=== PATIENT | male | born 1950 | race Caucasian/White ===

== ENCOUNTER 2021-06-06 11:58 | Inpatient (IN) | payer MEDICARE, OTHER ==
[~2021-06-06] VITALS: Ht 185.4 cm; Wt 91.4 kg
[~2021-06-06 11:58] MED LIST: LISI5TAB15 PO; METH40TA3 PO; METO10TA81 PO; ONDA4TAB10 SL; SIMV40TA18 PO
[2021-06-06] MEDS ORDERED: CONTRAST GIVEN. MC PRN (12:30)
[2021-06-06] MEDS ORDERED: IOHEXOL 300 MG/ML 100ML VIAL. IV ONE (12:30)
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
[2021-06-06 12:37] LABS: BASO % 0 % (0-3); EOS # 0.1 x10^3/uL (0.0-0.7); EOS % 1 % (0-3); HEMATOCRIT 38.3 % (39.0-53.0); HEMOGLOBIN 12.9 g/dL (13.0-17.5); LYMPH # 0.7 x10^3/uL (1.0-4.8); LYMPH % 8 % (24-48); MEAN CORPUSCULAR HEMOGLOBIN 30 pg (25-35); MEAN CORPUSCULAR HGB CONC 34 g/dL (31-37); MEAN CORPUSCULAR VOLUME 89 fL (79-100); MONO # 0.5 x10^3/uL (0.0-1.1); MONO % 6 % (0-9); NEUT # 6.9 x10^3/uL (1.8-7.7); NEUT % 85 % (31-73); PLATELET COUNT 179 x10^3/uL (140-400); RED BLOOD COUNT 4.32 x10^6/uL (4.30-5.70); RED CELL DISTRIBUTION WIDTH 14.8 % (11.5-14.5); WHITE BLOOD COUNT 8.2 x10^3/uL (4.0-11.0)
[2021-06-06 12:57] LABS: CALCIUM 8.8 mg/dL (8.5-10.1); CREATININE 0.9 mg/dL (0.7-1.3); GFR 82.9; POTASSIUM 3.9 mmol/L (3.5-5.1)
--- NOTE | 2021-06-06 13:00 | RAD ---
EXAM: CTA HEAD AND NECK W/WO CONTRAST DATE: 06/06/2021 12:19 PM INDICATION: right weakness TECHNIQUE: CTA angiogram of the head and neck was obtained after IV bolus administration of 75 cc of Omnipaque 300. The images were sent to workstation and multiplanar reconstructions were obtained. Mu ltiplanar reconstruction images to include MIP and 3-D reconstruction images are submitted. One or more of the following dose reduction techniques were utilized: Automated exposure control (AEC ), Adjustment of mA and/or kV according to patient size, Use of iterative reconstruction technique dailey ch as ASiR, CT scan done according to ALARA and image gently/image wisely COMPARISON: Noncontrast CT head done earlier the same day. FINDINGS: CTA Head: The visualized distal internal carotid arteries, anterior and middle cerebral arteries are patent and normal caliber. The distal vertebral arteries, basilar artery, and posterior cerebral arteries are p atent and normal caliber. No aneurysm or arteriovenous malformation is seen. CTA Neck: Right carotid: The right common carotid artery is patent and normal caliber. The carotid bifurcation is normal. No stenosis of the right internal carotid artery per NASCET criteria. The right external c arotid artery is patent. Left carotid: The left common carotid artery is patent and normal caliber. The carotid bifurcation is normal. No stenosis of the left internal carotid artery per NASCET criteria. The left external carot id artery is patent. Right vertebral: The right vertebral artery is patent and normal caliber. Left vertebral: The left vertebral artery is patent and is dominant. The visualized portions of the aortic arch are normal. The origins of the brachiocephalic and subclav viktoria arteries are normal. No cervical lymphadenopathy. The thyroid gland is normal. The parotid and submandibular glands are no rmal. The visualized aerodigestive tract is unremarkable. Severe multilevel degenerative disc height loss. Multilevel disc protrusions and marginal osteophytes results in multilevel moderate to severe spinal canal stenosis. Multilevel uncovertebral and facet a rthrosis with multilevel moderate to severe neural foraminal narrowing. The visualized portions of the lungs are clear. IMPRESSION: 1. No intracranial large vessel occlusion. 2. No stenosis of the cervical carotid or vertebral arteries. 3. Advanced cervical spondylosis with moderate to severe spinal canal stenosis and neural foraminal n arrowing. This could be further characterized with MRI, as clinically warranted. PQRS Compliance Statement - Stenosis calculations for CT, MR and conventional angiography are based u daniel measurement of the distal ICA diameter in accordance with the NASCET methodology. Electronically signed by: Jeremy Peterson MD (06/06/2021 12:57 PM) [id number]
[2021-06-06 13:03] LABS: ALBUMIN 3.8 g/dL (3.4-5.0); ALBUMIN/GLOBULIN RATIO 1.2 (1.0-1.7); TOTAL BILIRUBIN 0.6 mg/dL (0.2-1.0); TOTAL PROTEIN 6.9 g/dL (6.4-8.2)
[2021-06-06] MEDS ORDERED: ASPIRIN RECTAL 300 MG SUPP. PR PRN (14:15)
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
[2021-06-06] MEDS ORDERED: ACETAMINOPHEN 325 MG TABLET. PO PRN (15:00)
[2021-06-06 15:13] LABS: CHOLESTEROL/HDL RATIO 2.1
[2021-06-06 18:14] VITALS: BP 153/75
[2021-06-06] MEDS ORDERED: TRIA15OI TP (19:09)
[2021-06-06] MEDS ORDERED: [UNRECOGNIZED DRUG - CODE] PO (19:09)
[2021-06-06] MEDS ORDERED: LISI20TA18 PO (19:11)
[2021-06-06] MEDS ORDERED: METHYLNALTREXONE 12 MG/0.6 ML VIAL. SQ ONE (19:15)
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
--- NOTE | 2021-06-06 20:23 | EKG ---
[facility] [address] [place] [address] Test Date: 2021-06-06 Test Time: 12:08:49 Pat Name: DURAN GARCIA Department: Room: [facility] Gender: M Ob/Gyn: : 1950 Requested By: JAMIE GRAY Order Number: [id number] Reading MD: Jules Baxter Measurements Intervals [place] Rate: 64 P: 57 MI: 168 QRS: 24 QRSD: 102 T: 37 QT: 424 QTc: 442 Interpretive Statements SINUS RHYTHM QRS(T) CONTOUR ABNORMALITY CONSIDER ANTEROLATERAL MYOCARDIAL DAMAGE POSSIBLY ABNORMAL ECG RI6.01 Compared to ECG 04/16/2016 16:14:32 Prolonged QT interval no longer present Electronically Signed On 06-07-2021 9:02:08 [employer] by Jules Baxter
[2021-06-06] MEDS ORDERED: ATORVASTATIN CALCIUM 40 MG TABLET. PO SCH (21:00)
[2021-06-06] MEDS: NYSTATIN TOPICAL POWDER 15GM BOTTLE. TP SCH (22:12)
[2021-06-06] MEDS ORDERED: SENN-121 PO (22:32)
[2021-06-06 23:10] VITALS: BP 149/89
[2021-06-06] MEDS: ONDANSETRON PF 4 MG/2 ML VIAL. IVP PRN (23:29)
[2021-06-06] MEDS: MORPHINE SULFATE 2 MG/ML INJ. IVP PRN (23:29)
[2021-06-07 03:40] VITALS: BP 137/80
[2021-06-07] MEDS: ONDANSETRON PF 4 MG/2 ML VIAL. IVP PRN (06:16)
[2021-06-07] MEDS: MORPHINE SULFATE 2 MG/ML INJ. IVP PRN (06:17)
[2021-06-07 06:52] LABS: BASO % 0 % (0-3); EOS # 0.1 x10^3/uL (0.0-0.7); EOS % 1 % (0-3); HEMATOCRIT 37.2 % (39.0-53.0); HEMOGLOBIN 12.5 g/dL (13.0-17.5); LYMPH # 0.8 x10^3/uL (1.0-4.8); LYMPH % 11 % (24-48); MEAN CORPUSCULAR HEMOGLOBIN 30 pg (25-35); MEAN CORPUSCULAR HGB CONC 34 g/dL (31-37); MEAN CORPUSCULAR VOLUME 89 fL (79-100); MONO # 0.4 x10^3/uL (0.0-1.1); MONO % 6 % (0-9); NEUT % 82 % (31-73); PLATELET COUNT 180 x10^3/uL (140-400); RED BLOOD COUNT 4.21 x10^6/uL (4.30-5.70); WHITE BLOOD COUNT 7.2 x10^3/uL (4.0-11.0)
[2021-06-07 06:58] LABS: CALCIUM 8.6 mg/dL (8.5-10.1); CREATININE 0.7 mg/dL (0.7-1.3); GFR 110.9; POTASSIUM 3.9 mmol/L (3.5-5.1)
[2021-06-07 07:00] VITALS: BP 134/70
[2021-06-07] MEDS: NYSTATIN TOPICAL POWDER 15GM BOTTLE. TP SCH ×2 (09:00→20:04)
--- NOTE | 2021-06-07 09:07 | PDOC ---
PROGRESS NOTES Date of Service DATE: 06/07/21 TIME: 09:04 Assessment New stroke, right hemiparesis, previous stroke with right hemiparesis. CT shows chronic small vessel ischemic disease and chronic infarcts left cerebral hemisphere posteriorly and right cerebellum Has had development of gait disorder in the past [address] angiogram incidentally shows cervical spondylosis, rule out cervical cord problems. Hypertension Favorable lipid profile Plan Await MRI of the brain and cervical spine, and echocardiogram Aspirin Switch to lower dose of atorvastatin Watch blood pressure Rehabilitation modalities Subjective Feels better Objective Vital Signs Date Time Temp Pulse Resp B/P (MAP) Pulse Ox O2 Delivery O2 Flow Rate FiO2 06/07/21 07:00 98.0 56 18 134/70 (91) 93 Room Air 98.0 Intake and Output 06/07/21 07:00 Intake Total 0 ml Output Total 0 ml Balance 0 ml Intake Oral 0 ml Output Urine Total 0 ml # Voids 1 # Bowel Movements 1 PHYSICAL EXAM Alert. Oriented to time, place and person. PERRL. EOMI. CN: Slight right central facial weakness, otherwise no focal findings. Muscle tone: normal. Muscle strength: 3/5 right hemiparesis DTR: 2+ Plantar reflex: Flexor Gait: not examined in bed. Sensory exam: Right hemihypesthesia No cerebellar signs elicited. Review of Relevant I have reviewed the following items eryn (where applicable) has been applied. Labs Laboratory Tests Test 06/06/21 12:07 06/06/21 12:20 06/06/21 15:55 06/07/21 04:50 Glucose (Fingerstick) 95 mg/dL (70-99) White Blood Count 8.2 x10^3/uL (4.0-11.0) 7.2 x10^3/uL (4.0-11.0) Red Blood Count 4.32 x10^6/uL (4.30-5.70) 4.21 x10^6/uL (4.30-5.70) Hemoglobin 12.9 g/dL (13.0-17.5) 12.5 g/dL (13.0-17.5) Hematocrit 38.3 % (39.0-53.0) 37.2 % (39.0-53.0) Mean Corpuscular Volume 89 fL (79-100) 89 fL (79-100) Mean Corpuscular Hemoglobin 30 pg (25-35) 30 pg (25-35) Mean Corpuscular Hemoglobin Concent 34 g/dL (31-37) 34 g/dL (31-37) Red Cell Distribution Width 14.8 % (11.5-14.5) 15.0 % (11.5-14.5) Platelet Count 179 x10^3/uL (140-400) 180 x10^3/uL (140-400) Neutrophils (%) (Auto) 85 % (31-73) 82 % (31-73) Lymphocytes (%) (Auto) 8 % (24-48) 11 % (24-48) Monocytes (%) (Auto) 6 % (0-9) 6 % (0-9) Eosinophils (%) (Auto) 1 % (0-3) 1 % (0-3) Basophils (%) (Auto) 0 % (0-3) 0 % (0-3) Neutrophils # (Auto) 6.9 x10^3/uL (1.8-7.7) 6.0 x10^3/uL (1.8-7.7) Lymphocytes # (Auto) 0.7 x10^3/uL (1.0-4.8) 0.8 x10^3/uL (1.0-4.8) Monocytes # (Auto) 0.5 x10^3/uL (0.0-1.1) 0.4 x10^3/uL (0.0-1.1) Eosinophils # (Auto) 0.1 x10^3/uL (0.0-0.7) 0.1 x10^3/uL (0.0-0.7) Basophils # (Auto) 0.0 x10^3/uL (0.0-0.2) 0.0 x10^3/uL (0.0-0.2) Prothrombin Time 15.0 SEC (11.7-14.0) Prothromb Time International Ratio 1.2 (0.8-1.1) Activated Partial Thromboplast Time 32 SEC (24-38) Sodium Level 137 mmol/L (136-145) 138 mmol/L (136-145) Potassium Level 3.9 mmol/L (3.5-5.1) 3.9 mmol/L (3.5-5.1) Chloride Level 100 mmol/L (98-107) 102 mmol/L (98-107) Carbon Dioxide Level 31 mmol/L (21-32) 29 mmol/L (21-32) Anion Gap 6 (6-14) 7 (6-14) Blood Urea Nitrogen 12 mg/dL (8-26) 12 mg/dL (8-26) Creatinine 0.9 mg/dL (0.7-1.3) 0.7 mg/dL (0.7-1.3) Estimated GFR (Cockcroft-Gault) 82.9 110.9 BUN/Creatinine Ratio 13 (6-20) Glucose Level 96 mg/dL (70-99) 87 mg/dL (70-99) Calcium Level 8.8 mg/dL (8.5-10.1) 8.6 mg/dL (8.5-10.1) Total Bilirubin 0.6 mg/dL (0.2-1.0) Aspartate Amino Transf (AST/SGOT) 27 U/L (15-37) Alanine Aminotransferase (ALT/SGPT) 39 U/L (16-63) Alkaline Phosphatase 85 U/L (46-116) Troponin I High Sensitivity 12 ng/L (4-75) Total Protein 6.9 g/dL (6.4-8.2) Albumin 3.8 g/dL (3.4-5.0) Albumin/Globulin Ratio 1.2 (1.0-1.7) Triglycerides Level 51 mg/dL (0-150) Cholesterol Level 157 mg/dL (0-200) LDL Cholesterol, Calculated 72 mg/dL (0-100) VLDL Cholesterol, Calculated 10 mg/dL (0-40) Non-HDL Cholesterol Calculated 82 mg/dL (0-129) HDL Cholesterol 75 mg/dL (40-60) Cholesterol/HDL Ratio 2.1 SARS-CoV-2 Antigen (Rapid) Negative (NEGATIVE) Laboratory Tests Test 06/06/21 12:07 06/06/21 12:20 06/06/21 15:55 06/07/21 04:50 Glucose (Fingerstick) 95 mg/dL (70-99) White Blood Count 8.2 x10^3/uL (4.0-11.0) 7.2 x10^3/uL (4.0-11.0) Red Blood Count 4.32 x10^6/uL (4.30-5.70) 4.21 x10^6/uL (4.30-5.70) Hemoglobin 12.9 g/dL (13.0-17.5) 12.5 g/dL (13.0-17.5) Hematocrit 38.3 % (39.0-53.0) 37.2 % (39.0-53.0) Mean Corpuscular Volume 89 fL (79-100) 89 fL (79-100) Mean Corpuscular Hemoglobin 30 pg (25-35) 30 pg (25-35) Mean Corpuscular Hemoglobin Concent 34 g/dL (31-37) 34 g/dL (31-37) Red Cell Distribution Width 14.8 % (11.5-14.5) 15.0 % (11.5-14.5) Platelet Count 179 x10^3/uL (140-400) 180 x10^3/uL (140-400) Neutrophils (%) (Auto) 85 % (31-73) 82 % (31-73) Lymphocytes (%) (Auto) 8 % (24-48) 11 % (24-48) Monocytes (%) (Auto) 6 % (0-9) 6 % (0-9) Eosinophils (%) (Auto) 1 % (0-3) 1 % (0-3) Basophils (%) (Auto) 0 % (0-3) 0 % (0-3) Neutrophils # (Auto) 6.9 x10^3/uL (1.8-7.7) 6.0 x10^3/uL (1.8-7.7) Lymphocytes # (Auto) 0.7 x10^3/uL (1.0-4.8) 0.8 x10^3/uL (1.0-4.8) Monocytes # (Auto) 0.5 x10^3/uL (0.0-1.1) 0.4 x10^3/uL (0.0-1.1) Eosinophils # (Auto) 0.1 x10^3/uL (0.0-0.7) 0.1 x10^3/uL (0.0-0.7) Basophils # (Auto) 0.0 x10^3/uL (0.0-0.2) 0.0 x10^3/uL (0.0-0.2) Prothrombin Time 15.0 SEC (11.7-14.0) Prothromb Time International Ratio 1.2 (0.8-1.1) Activated Partial Thromboplast Time 32 SEC (24-38) Sodium Level 137 mmol/L (136-145) 138 mmol/L (136-145) Potassium Level 3.9 mmol/L (3.5-5.1) 3.9 mmol/L (3.5-5.1) Chloride Level 100 mmol/L (98-107) 102 mmol/L (98-107) Carbon Dioxide Level 31 mmol/L (21-32) 29 mmol/L (21-32) Anion Gap 6 (6-14) 7 (6-14) Blood Urea Nitrogen 12 mg/dL (8-26) 12 mg/dL (8-26) Creatinine 0.9 mg/dL (0.7-1.3) 0.7 mg/dL (0.7-1.3) Estimated GFR (Cockcroft-Gault) 82.9 110.9 BUN/Creatinine Ratio 13 (6-20) Glucose Level 96 mg/dL (70-99) 87 mg/dL (70-99) Calcium Level 8.8 mg/dL (8.5-10.1) 8.6 mg/dL (8.5-10.1) Total Bilirubin 0.6 mg/dL (0.2-1.0) Aspartate Amino Transf (AST/SGOT) 27 U/L (15-37) Alanine Aminotransferase (ALT/SGPT) 39 U/L (16-63) Alkaline Phosphatase 85 U/L (46-116) Troponin I High Sensitivity 12 ng/L (4-75) Total Protein 6.9 g/dL (6.4-8.2) Albumin 3.8 g/dL (3.4-5.0) Albumin/Globulin Ratio 1.2 (1.0-1.7) Triglycerides Level 51 mg/dL (0-150) Cholesterol Level 157 mg/dL (0-200) LDL Cholesterol, Calculated 72 mg/dL (0-100) VLDL Cholesterol, Calculated 10 mg/dL (0-40) Non-HDL Cholesterol Calculated 82 mg/dL (0-129) HDL Cholesterol 75 mg/dL (40-60) Cholesterol/HDL Ratio 2.1 SARS-CoV-2 Antigen (Rapid) Negative (NEGATIVE) Medications Current Medications Iohexol (Omnipaque 300 Mg/ml) 75 ml 1X ONCE IV Last administered on 06/06/21at 12:44; Start 06/06/21 at 12:30; Stop 06/06/21 at 12:31; Status DC Info (CONTRAST GIVEN -- Rx MONITORING) 1 each PRN DAILY PRN MC SEE COMMENTS; Start 06/06/21 at 12:30; Stop 06/08/21 at 12:29 Atorvastatin Calcium (Lipitor) 80 mg QHS PO ; Start 06/06/21 at 21:00 Acetaminophen (Tylenol) 650 mg PRN Q6HRS PRN PO MILD PAIN / TEMP > 100.3'F; Start 06/06/21 at 14:15 Aspirin (Ecotrin) 325 mg DAILYWBKFT PO ; Start 06/07/21 at 08:00 Aspirin (Aspirin Rectal Supp) 300 mg PRN DAILY PRN NH IF UNABLE TO TAKE PO; Start 06/06/21 at 14:15 Ondansetron HCl (Zofran) 4 mg PRN Q8HRS PRN IVP NAUSEA/VOMITING Last administered on 06/07/21at 06:16; Start 06/06/21 at 15:00; Stop 06/07/21 at 14:59 Morphine Sulfate (Morphine Sulfate) 2 mg PRN Q2HR PRN IVP PAIN Last administered on 06/07/21at 06:17; Start 06/06/21 at 15:00; Stop 06/07/21 at 14:59 Acetaminophen (Tylenol) 650 mg PRN Q4HRS PRN PO FEVER > 100.3'F; Start 06/06/21 at 15:00; Stop 06/07/21 at 14:59 Methylnaltrexone Anderson (Relistor) 12 mg 1X ONCE SQ Last administered on 06/06/21at 22:12; Start 06/06/21 at 19:15; Stop 06/06/21 at 19:16; Status DC Nystatin (Nystop) 1 dhruv BID TP Last administered on 06/06/21at 22:12; Start 06/06/21 at 21:00 Active Scripts Active Reported Colace 2-in-1 Tablet (Sennosides/Docusate Sodium) 1 Each Tablet 1 Each PO BID Lisinopril 20 Mg Tablet 1 Tab PO DAILY Pregabalin 100 Mg Capsule 1 Cap PO BID Triamcinolone Acetonide 0.1% Oint (Triamcinolone Acetonide) 15 Gm Oint...g. 1 Ap p TP BID Simvastatin 40 Mg Tablet 40 Mg PO HS Methadone Hcl 40 Mg Tablet.carlita 165 Mg PO DAILY Vitals/I & O Vital Sign - Last 24 Hours 06/06/21 06/06/21 06/06/21 06/06/21 11:58 12:04 12:34 13:04 Temp 98.3 98.3 Pulse 68 58 58 49 Resp 18 B/P (MAP) 148/72 (97) 148/72 (97) 146/81 (102) 140/76 (97) Pulse Ox 98 94 94 94 O2 Delivery Room Air Room Air Room Air Room Air 06/06/21 06/06/21 06/06/21 06/06/21 13:34 14:04 15:04 15:34 Pulse 49 51 51 52 B/P (MAP) 150/71 (97) 140/72 (94) 142/78 (99) 152/74 (100) Pulse Ox 94 94 95 95 O2 Delivery Room Air Room Air Room Air Room Air 06/06/21 06/06/21 06/06/21 06/06/21 16:04 16:34 18:14 20:05 Temp 98.1 98.1 Pulse 48 48 52 B/P (MAP) 135/71 (92) 140/88 (105) 153/75 (101) Pulse Ox 96 95 95 O2 Delivery Room Air Room Air Room Air Room Air 06/06/21 06/06/21 06/06/21 06/07/21 23:10 23:29 23:59 03:40 Temp 98.1 97.9 98.1 97.9 Pulse 66 61 Resp 20 20 20 20 B/P (MAP) 149/89 (109) 137/80 (99) Pulse Ox 92 92 O2 Delivery Room Air Room Air Room Air Room Air 06/07/21 06/07/21 06/07/21 06:17 06:47 07:00 Temp 98.0 98.0 Pulse 56 Resp 20 20 18 B/P (MAP) 134/70 (91) Pulse Ox 93 O2 Delivery Room Air Room Air Room Air Intake and Output 06/06/21 06/06/21 06/07/21 15:00 23:00 07:00 Intake Total 0 ml 0 ml Output Total 0 ml Balance 0 ml 0 ml Justicifation of Admission Dx: Justifications for Admission: Justification of Admission Dx: Yes Stroke - Ischemic: Stroke-Ischemic LINN CHAVEZ MD Jun 07, 2021 09:07
[2021-06-07] MEDS: ASPIRIN ENTERIC COATED 325 MG TABLET.DR. PO SCH (10:48)
[2021-06-07] MEDS: METHADONE PO SCH (10:48)
[2021-06-07 11:00] VITALS: BP 141/69
--- NOTE | 2021-06-07 13:00 | NUR ---
SS following for discharge planning. SS reviewed pt chart and discussed with pt RN. Pt is from home and is currently on room air. COVID19 negative. Neurology following. PO diet. PT/OT ordered. SS will continue to follow for discharge planning.
[2021-06-07 15:00] VITALS: BP 137/82
--- NOTE | 2021-06-07 15:07 | PDOC ---
[employer] PROGRESS NOTE Date of Service DOS: DATE: 06/07/21 TIME: 15:05 Chief Complaint Chief Complaint CVA, CVA syndrome,. New stroke symptoms with worsenign of residual prior right hemiparesis, previous stroke right hemipareiss, weakness, cannot ambulate Hypertension opioid dependence, prior abuse, on methadone History of Present Illness History of Present Illness cont same, MRI brain swallow OK cont home methadone Neuro consult following Vitals/I&O Vitals/I&O: Vital Signs Date Time Temp Pulse Resp B/P (MAP) Pulse Ox O2 Delivery O2 Flow Rate FiO2 06/07/21 11:00 98.4 58 18 141/69 (93) 91 Room Air 98.4 I & O 06/06/21 06/06/21 06/07/21 14:59 22:59 06:59 Intake Total 0 ml 0 ml Output Total 0 ml Balance 0 ml 0 ml Physical Exam General: Alert, Oriented X3, Cooperative, mild distress (pain, back pain, is late getting his methadone) Heart: Normal S1 Abdomen: Normal bowel sounds, Soft Extremities: No cyanosis Skin: No breakdown Labs Labs: Laboratory Tests Test 06/06/21 15:55 06/07/21 04:50 SARS-CoV-2 RNA (BOB) Negative (Negative) SARS-CoV-2 Antigen (Rapid) Negative (NEGATIVE) White Blood Count 7.2 x10^3/uL (4.0-11.0) Red Blood Count 4.21 x10^6/uL (4.30-5.70) Hemoglobin 12.5 g/dL (13.0-17.5) Hematocrit 37.2 % (39.0-53.0) Mean Corpuscular Volume 89 fL (79-100) Mean Corpuscular Hemoglobin 30 pg (25-35) Mean Corpuscular Hemoglobin Concent 34 g/dL (31-37) Red Cell Distribution Width 15.0 % (11.5-14.5) Platelet Count 180 x10^3/uL (140-400) Neutrophils (%) (Auto) 82 % (31-73) Lymphocytes (%) (Auto) 11 % (24-48) Monocytes (%) (Auto) 6 % (0-9) Eosinophils (%) (Auto) 1 % (0-3) Basophils (%) (Auto) 0 % (0-3) Neutrophils # (Auto) 6.0 x10^3/uL (1.8-7.7) Lymphocytes # (Auto) 0.8 x10^3/uL (1.0-4.8) Monocytes # (Auto) 0.4 x10^3/uL (0.0-1.1) Eosinophils # (Auto) 0.1 x10^3/uL (0.0-0.7) Basophils # (Auto) 0.0 x10^3/uL (0.0-0.2) Sodium Level 138 mmol/L (136-145) Potassium Level 3.9 mmol/L (3.5-5.1) Chloride Level 102 mmol/L (98-107) Carbon Dioxide Level 29 mmol/L (21-32) Anion Gap 7 (6-14) Blood Urea Nitrogen 12 mg/dL (8-26) Creatinine 0.7 mg/dL (0.7-1.3) Estimated GFR (Cockcroft-Gault) 110.9 Glucose Level 87 mg/dL (70-99) Calcium Level 8.6 mg/dL (8.5-10.1) Review of Systems Review of Systems: back pain, wekaness, normal stool recently Assessment and Plan Assessmemt and Plan CT shows chronic small vessel ischemic disease and chronic infarcts left cerebral hemisphere posteriorly and right cerebellum Comment Review of Relevant I have reviewed the following items eryn (where applicable) has been applied. Medications: Current Medications Medications (Trade) Dose Ordered Sig/Tushar Route PRN Reason Start Time Stop Time Status Last Admin Dose Admin Aspirin (Ecotrin) 325 mg DAILYWBKFT PO 06/07/21 08:00 06/07/21 10:48 Methylnaltrexone Brandon (Relistor) 12 mg 1X ONCE SQ 06/06/21 19:15 06/06/21 19:16 DC 06/06/21 22:12 Nystatin (Nystop) 1 dhruv BID TP 06/06/21 21:00 06/07/21 09:00 Non-Formulary Medication (Methadone Hcl ) 165 mg DAILY PO 06/07/21 11:00 06/07/21 10:48 Justifications for Admission TIA Indications Hemodynamically unstable?: No Persistent neurologic signs?: Yes Cardiomyopathy/Valvular diseas: No Severe hypertension?: No Cardiac arrhythmia?: No Other Justification CELSO DOMINGUEZ MD Jun 07, 2021 15:07
--- NOTE | 2021-06-07 15:45 | RAD ---
EXAMINATION: Magnetic resonance imaging (MRI) of the brain and brainstem without contrast 06/07/2021 1 :45 PM HISTORY: CVA TECHNIQUE: Multiplanar multi-weighted MRI of the brain and brainstem was performed without intravenou s contrast using the general brain protocol. COMPARISON: CT head 06/06/2021 FINDINGS: The scalp and calvarium are normal. The superior sagittal sinus demonstrates normal venous flow. The corpus callosum is normal in shape and signal intensity. There is encephalomalacia along the inferio r right cerebellum likely sequela of prior infarct in the right posterior inferior cerebral artery te rritory. The pituitary and sella are normal. The brainstem and craniocervical junction are unremarka ble. There is encephalomalacia involving the left occipital lobe compatible with remote ischemic garza ges. Remote lacunar infarct in the left putamen. There is associated susceptibility artifact compatib le with remote hemorrhage in this region. There is a focus of susceptibility artifact identified in t he left frontal lobe suggestive of microhemorrhage or tiny cavernoma. Similar finding identified with in the right middle frontal gyrus. There are T2/FLAIR signal hyperintense foci in the periventricular and subcortical white matter most suggestive of mild chronic small vessel ischemic changes. Diffusion weighted images reveal no hyperintensities to suggest acute cerebral infarction. Ventricles , sulci and basal cisterns are prominent compatible with mild to moderate generalized cerebral volume loss. The paranasal sinuses are normal. The visualized portions of the mastoids are unremarkable. The orbi ts appear normal. Normal flow voids are demonstrated in the carotid arteries and basilar artery. IMPRESSION: 1. No evidence for acute or subacute ischemia. 2. Remote ischemic changes identified in the inferior right cerebellum and left occipital lobe. Remot e hemorrhagic infarct involving the left putamen. 3. Mild to moderate generalized cerebral volume loss. There are T2/FLAIR signal hyperintense foci in the periventricular and subcortical white matter most suggestive of mild chronic small vessel ischemi c changes. 4. Foci of susceptibility artifact identified within the left frontal lobe and right middle frontal g yrus. Findings may be associated with tiny cavernoma or areas of microhemorrhage. Electronically signed by: Arlene Chaevz MD (06/07/2021 3:43 PM) [facility]
--- NOTE | 2021-06-07 15:56 | RAD ---
EXAMINATION: Magnetic resonance imaging (MRI) of the cervical spine without contrast 06/07/2021 1:45 P M HISTORY: Cervical spondylosis on CT. Gait disorder for past 2 weeks. TECHNIQUE: Multiplanar multi-weighted MRI of the cervical spine was performed without intravenous con trast using the standard cervical spine protocol. Contrast information: None administered COMPARISON: CT cervical spine 06/06/2021. FINDINGS: There is 2 mm retrolisthesis of C6 on C7. Mild disc height loss at C5-C6 and C6-C7. No significant ma rrow edema. Mild to moderate intramarginal osteophytosis. No acute fracture. Precervical junction is intact. Vertebral artery flow voids are maintained. Skull base appears intact. There is no prevertebr al edema. No paraspinal soft tissue abnormality. C2-C3: Disc is normal in configuration. There is moderate to severe left facet arthropathy and modera te right facet arthropathy. Mild uncovertebral joint disease. Moderate to severe left neuroforaminal stenosis. Mild spinal canal stenosis. C3-C4: There is a posterior disc osteophyte complex asymmetric to the left. There is severe left and moderate right facet arthropathy. Moderate left uncovertebral joint disease. Severe left neural nae inal stenosis. Moderate right neuroforaminal stenosis. Moderate spinal canal stenosis with deformity of the cord without cord signal alteration. C4-C5: There is a posterior disc osteophyte complex. Moderate facet arthropathy. Moderate uncovertebr al joint disease, right greater the left. Severe bilateral neuroforaminal stenosis. Severe spinal can al stenosis, exacerbated by ligamentum flavum infolding. There is cord signal alteration at this leve l. C5-C6: There is a posterior disc osteophyte complex asymmetric to the right. Mild facet arthropathy. Moderate right and mild to moderate left uncovertebral disease. Moderate spinal canal stenosis with m ild deformity of the cord. Severe right and moderate left neuroforaminal stenosis. C6-C7: Posterior disc osteophyte complex with mild facet arthropathy. Mild uncovertebral joint diseas e. Moderate bilateral neuroforaminal stenosis. Moderate spinal canal stenosis with mild form of the c ord. No cord signal alteration. C7-T1: Mild disc bulge. No neuroforaminal or spinal canal stenosis. IMPRESSION: Changes of the cervical spine as described in detail above. Severe spinal canal stenosis at C4-C5 wit hout compression and cord signal alteration which may reflect cord edema or myelomalacia. Electronically signed by: Arlene Chavez MD (06/07/2021 3:54 PM) [facility]
[2021-06-07] MEDS ORDERED: KETOROLAC 30 MG/ML VIAL. IVP ONE (17:30)
[2021-06-07] MEDS: LIDOCAINE (700MG/PATCH) PATCH. TD SCH (17:36)
[2021-06-07] MEDS: ACETAMINOPHEN 325 MG TABLET. PO PRN (17:37)
[2021-06-07 19:45] VITALS: BP 145/80
[2021-06-07] MEDS: PREGABALIN 50 MG CAPSULE PO SCH (19:53)
[2021-06-07] MEDS: SIMVASTATIN 40 MG TABLET. PO SCH (19:53)
[2021-06-07] MEDS: SENNOSIDES/DOCUSATE 8.6/50MG TABLET. PO SCH (20:03)
[2021-06-07] MEDS: TRIAMCINOLONE ACETONIDE 0.1% TOPICAL OINTMENT 15GM TUBE. TP SCH (20:03)
[2021-06-07] MEDS: PATCH REMOVAL. MC SCH (21:00)
[2021-06-07] MEDS ORDERED: ATORVASTATIN CALCIUM 10 MG TABLET. PO SCH (21:00)
[2021-06-07 22:30] VITALS: BP 127/74
[2021-06-08 01:12] LABS: HEMOGLOBIN A1C 5.9 % (4.8-5.6)
[2021-06-08 02:40] VITALS: BP 146/79
[2021-06-08 07:00] VITALS: BP 166/78
[2021-06-08] MEDS: ASPIRIN ENTERIC COATED 325 MG TABLET.DR. PO SCH (08:38)
[2021-06-08] MEDS: SENNOSIDES/DOCUSATE 8.6/50MG TABLET. PO SCH ×2 (08:38→21:02)
[2021-06-08] MEDS: POTASSIUM CL 20MEQ D5-0.45NACL 1,000 ML IV SCH ×2 (08:38→18:00)
[2021-06-08] MEDS: PREGABALIN 50 MG CAPSULE PO SCH ×2 (08:38→21:02)
[2021-06-08] MEDS: ACETAMINOPHEN 325 MG TABLET. PO PRN ×2 (08:39→21:07)
[2021-06-08] MEDS: LISINOPRIL 20 MG TABLET PO SCH (08:39)
[2021-06-08] MEDS: LIDOCAINE (700MG/PATCH) PATCH. TD SCH (08:39)
[2021-06-08] MEDS: NYSTATIN TOPICAL POWDER 15GM BOTTLE. TP SCH ×2 (08:40→21:03)
[2021-06-08] MEDS: TRIAMCINOLONE ACETONIDE 0.1% TOPICAL OINTMENT 15GM TUBE. TP SCH ×2 (08:40→21:03)
--- NOTE | 2021-06-08 08:54 | PDOC ---
PROGRESS NOTES Date of Service DATE: 06/08/21 TIME: 08:51 Assessment No new stroke on MRI, had right hemiparesis with previous stroke. 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 Does have severe cervical spondylosis with myelopathy changes at C4-5 Hypertension Favorable lipid profile Plan Consulted neurosurgery Aspirin and atorvastatin Watch blood pressure Rehabilitation modalities Echocardiogram, they say he had one a few weeks ago but nothing in the chart yet Subjective No new complaints Objective Vital Signs Date Time Temp Pulse Resp B/P (MAP) Pulse Ox O2 Delivery O2 Flow Rate FiO2 06/08/21 08:39 55 166/78 06/08/21 07:00 98.1 18 91 Room Air 98.1 Intake and Output 06/08/21 07:00 Intake Total 550 ml Balance 550 ml Intake Oral 550 ml PHYSICAL EXAM Alert. Oriented to time, place and person. PERRL. EOMI. CN: Slight right central facial weakness, otherwise no focal findings. Muscle tone: normal. Muscle strength: 3/5 right hemiparesis DTR: 2+ Plantar reflex: Flexor Gait: not examined in bed. Sensory exam: Right hemihypesthesia No cerebellar signs elicited. Review of Relevant I have reviewed the following items eryn (where applicable) has been applied. Labs Laboratory Tests Test 06/06/21 12:07 06/06/21 12:20 06/06/21 15:55 06/07/21 04:50 Glucose (Fingerstick) 95 mg/dL (70-99) White Blood Count 8.2 x10^3/uL (4.0-11.0) 7.2 x10^3/uL (4.0-11.0) Red Blood Count 4.32 x10^6/uL (4.30-5.70) 4.21 x10^6/uL (4.30-5.70) Hemoglobin 12.9 g/dL (13.0-17.5) 12.5 g/dL (13.0-17.5) Hematocrit 38.3 % (39.0-53.0) 37.2 % (39.0-53.0) Mean Corpuscular Volume 89 fL (79-100) 89 fL (79-100) Mean Corpuscular Hemoglobin 30 pg (25-35) 30 pg (25-35) Mean Corpuscular Hemoglobin Concent 34 g/dL (31-37) 34 g/dL (31-37) Red Cell Distribution Width 14.8 % (11.5-14.5) 15.0 % (11.5-14.5) Platelet Count 179 x10^3/uL (140-400) 180 x10^3/uL (140-400) Neutrophils (%) (Auto) 85 % (31-73) 82 % (31-73) Lymphocytes (%) (Auto) 8 % (24-48) 11 % (24-48) Monocytes (%) (Auto) 6 % (0-9) 6 % (0-9) Eosinophils (%) (Auto) 1 % (0-3) 1 % (0-3) Basophils (%) (Auto) 0 % (0-3) 0 % (0-3) Neutrophils # (Auto) 6.9 x10^3/uL (1.8-7.7) 6.0 x10^3/uL (1.8-7.7) Lymphocytes # (Auto) 0.7 x10^3/uL (1.0-4.8) 0.8 x10^3/uL (1.0-4.8) Monocytes # (Auto) 0.5 x10^3/uL (0.0-1.1) 0.4 x10^3/uL (0.0-1.1) Eosinophils # (Auto) 0.1 x10^3/uL (0.0-0.7) 0.1 x10^3/uL (0.0-0.7) Basophils # (Auto) 0.0 x10^3/uL (0.0-0.2) 0.0 x10^3/uL (0.0-0.2) Prothrombin Time 15.0 SEC (11.7-14.0) Prothromb Time International Ratio 1.2 (0.8-1.1) Activated Partial Thromboplast Time 32 SEC (24-38) Sodium Level 137 mmol/L (136-145) 138 mmol/L (136-145) Potassium Level 3.9 mmol/L (3.5-5.1) 3.9 mmol/L (3.5-5.1) Chloride Level 100 mmol/L (98-107) 102 mmol/L (98-107) Carbon Dioxide Level 31 mmol/L (21-32) 29 mmol/L (21-32) Anion Gap 6 (6-14) 7 (6-14) Blood Urea Nitrogen 12 mg/dL (8-26) 12 mg/dL (8-26) Creatinine 0.9 mg/dL (0.7-1.3) 0.7 mg/dL (0.7-1.3) Estimated GFR (Cockcroft-Gault) 82.9 110.9 BUN/Creatinine Ratio 13 (6-20) Glucose Level 96 mg/dL (70-99) 87 mg/dL (70-99) Hemoglobin A1c 5.9 % (4.8-5.6) Calcium Level 8.8 mg/dL (8.5-10.1) 8.6 mg/dL (8.5-10.1) Total Bilirubin 0.6 mg/dL (0.2-1.0) Aspartate Amino Transf (AST/SGOT) 27 U/L (15-37) Alanine Aminotransferase (ALT/SGPT) 39 U/L (16-63) Alkaline Phosphatase 85 U/L (46-116) Troponin I High Sensitivity 12 ng/L (4-75) Total Protein 6.9 g/dL (6.4-8.2) Albumin 3.8 g/dL (3.4-5.0) Albumin/Globulin Ratio 1.2 (1.0-1.7) Triglycerides Level 51 mg/dL (0-150) Cholesterol Level 157 mg/dL (0-200) LDL Cholesterol, Calculated 72 mg/dL (0-100) VLDL Cholesterol, Calculated 10 mg/dL (0-40) Non-HDL Cholesterol Calculated 82 mg/dL (0-129) HDL Cholesterol 75 mg/dL (40-60) Cholesterol/HDL Ratio 2.1 SARS-CoV-2 RNA (BOB) Negative (Negative) SARS-CoV-2 Antigen (Rapid) Negative (NEGATIVE) Medications Current Medications Iohexol (Omnipaque 300 Mg/ml) 75 ml 1X ONCE IV Last administered on 06/06/21at 12:44; Start 06/06/21 at 12:30; Stop 06/06/21 at 12:31; Status DC Info (CONTRAST GIVEN -- Rx MONITORING) 1 each PRN DAILY PRN MC SEE COMMENTS; Start 06/06/21 at 12:30; Stop 06/08/21 at 12:29 Atorvastatin Calcium (Lipitor) 80 mg QHS PO ; Start 06/06/21 at 21:00; Stop 06/07/21 at 09:07; Status DC Acetaminophen (Tylenol) 650 mg PRN Q6HRS PRN PO MILD PAIN / TEMP > 100.3'F Last administered on 06/08/21at 08:39; Start 06/06/21 at 14:15 Aspirin (Ecotrin) 325 mg DAILYWBKFT PO Last administered on 06/08/21at 08:38; Start 06/07/21 at 08:00 Aspirin (Aspirin Rectal Supp) 300 mg PRN DAILY PRN [place] IF UNABLE TO TAKE PO; Start 06/06/21 at 14:15 Ondansetron HCl (Zofran) 4 mg PRN Q8HRS PRN IVP NAUSEA/VOMITING Last administered on 06/07/21at 06:16; Start 06/06/21 at 15:00; Stop 06/07/21 at 14:59; Status DC Morphine Sulfate (Morphine Sulfate) 2 mg PRN Q2HR PRN IVP PAIN Last administered on 06/07/21at 06:17; Start 06/06/21 at 15:00; Stop 06/07/21 at 14:59; Status DC Acetaminophen (Tylenol) 650 mg PRN Q4HRS PRN PO FEVER > 100.3'F; Start 06/06/21 at 15:00; Stop 06/07/21 at 14:59; Status Cancel Methylnaltrexone [place] (Relistor) 12 mg 1X ONCE SQ Last administered on 06/06/21at 22:12; Start 06/06/21 at 19:15; Stop 06/06/21 at 19:16; Status DC Nystatin (Nystop) 1 divya BID TP Last administered on 06/08/21at 08:40; Start 06/06/21 at 21:00 Atorvastatin Calcium (Lipitor) 10 mg QHS PO ; Start 06/07/21 at 21:00; Stop 06/07/21 at 19:33; Status DC Non-Formulary Medication (Methadone Hcl ) 165 mg DAILY PO Last administered on 06/07/21at 10:48; Start 06/07/21 at 11:00; Stop 06/08/21 at 08:46; Status DC Ketorolac Tromethamine (Toradol 30mg Vial) 30 mg 1X ONCE IVP Last administered on 06/07/21at 17:36; Start 06/07/21 at 17:30; Stop 06/07/21 at 17:31; Status DC Lidocaine (Lidoderm) 1 patch DAILY TD Last administered on 06/08/21at 08:39; Start 06/07/21 at 17:30 Miscellaneous (Lidoderm Patch Removal) [address] [facility] ; Start 06/07/21 at 21:00 Lisinopril (Prinivil) 20 mg DAILY PO Last administered on 06/08/21at 08:39; Start 06/08/21 at 09:00 Senna/Docusate Sodium (Senna Plus) 1 tab BID PO Last administered on 06/08/21at 08:38; Start 06/07/21 at 21:00 Simvastatin (Zocor) 40 mg HS PO ; Start 06/07/21 at 21:00 Triamcinolone Acetonide (Kenalog 0.1%) 1 divya BID TP Last administered on 06/08/21at 08:40; Start 06/07/21 at 21:00 Pregabalin (Lyrica) 100 mg BID PO Last administered on 06/08/21at 08:38; Start 06/07/21 at 21:00 Potassium Chloride/Dextrose/ Sod Cl 1,000 ml @ 100 mls/hr Q10H IV Last administered on 06/08/21at 08:38; Start 06/08/21 at 08:00 Methadone HCl (Dolophine) 165 mg DAILY PO Last administered on 06/08/21at 08:47; Start 06/08/21 at 09:00 Active Scripts Active Reported Colace 2-in-1 Tablet (Sennosides/Docusate Sodium) 1 Each Tablet 1 Each PO BID Lisinopril 20 Mg Tablet 1 Tab PO DAILY Pregabalin 100 Mg Capsule 1 Cap PO BID Triamcinolone Acetonide 0.1% Oint (Triamcinolone Acetonide) 15 Gm Oint...g. 1 Divya TP BID Simvastatin 40 Mg Tablet 40 Mg PO HS Methadone Hcl 40 Mg Tablet.carlita 165 Mg PO DAILY Vitals/I & O Vital Sign - Last 24 Hours 06/07/21 06/07/21 06/07/21 06/07/21 11:00 15:00 19:45 20:00 Temp 98.4 98.6 98.3 98.4 98.6 98.3 Pulse 58 60 57 Resp 18 18 20 B/P (MAP) 141/69 (93) 137/82 (100) 145/80 (101) Pulse Ox 91 92 93 O2 Delivery Room Air Room Air Room Air Room Air 06/07/21 06/08/21 06/08/21 06/08/21 22:30 02:40 07:00 08:39 Temp 98.7 98.7 98.1 98.7 98.7 98.1 Pulse 35 46 55 55 Resp 18 18 18 B/P (MAP) 127/74 (91) 146/79 (101) 166/78 (107) 166/78 Pulse Ox 94 92 91 O2 Delivery Room Air Room Air Room Air Intake and Output 06/07/21 06/07/21 06/08/21 15:00 23:00 07:00 Intake Total 100 ml 250 ml 200 ml Balance 100 ml 250 ml 200 ml Images BRAIN W/O CONTRAST EXAMINATION: Magnetic resonance imaging (MRI) of the brain and brainstem without contrast 06/07/2021 1:45 PM HISTORY: CVA TECHNIQUE: Multiplanar multi-weighted MRI of the brain and brainstem was performed without intravenous contrast using the general brain protocol. COMPARISON: CT head 06/06/2021 FINDINGS: The scalp and calvarium are normal. The superior sagittal sinus demonstrates normal venous flow. The corpus callosum is normal in shape and signal intensity. There is encephalomalacia along the inferior right cerebellum likely sequela of prior infarct in the right posterior inferior cerebral artery territory. The pituitary and sella are normal. The brainstem and craniocervical junction are unremarkable. There is encephalomalacia involving the left occipital lobe compatible with remote ischemic changes. Remote lacunar infarct in the left putamen. There is associated susceptibility artifact compatible with remote hemorrhage in this region. There is a focus of susceptibility artifact identified in the left frontal lobe suggestive of microhemorrhage or tiny cavernoma. Similar finding identified within the right middle frontal gyrus. There are T2/FLAIR signal hyperintense foci in the periventricular and subcortical white matter most suggestive of mild chronic small vessel ischemic changes. Diffusion weighted images reveal no hyperintensities to suggest acute cerebral infarction. Ventricles, sulci and basal cisterns are prominent compatible with mild to moderate generalized cerebral volume loss. The paranasal sinuses are normal. The visualized portions of the mastoids are unremarkable. The orbits appear normal. Normal flow voids are demonstrated in the carotid arteries and basilar artery. IMPRESSION: 1. No evidence for acute or subacute ischemia. 2. Remote ischemic changes identified in the inferior right cerebellum and left occipital lobe. Remote hemorrhagic infarct involving the left putamen. 3. Mild to moderate generalized cerebral volume loss. There are T2/FLAIR signal hyperintense foci in the periventricular and subcortical white matter most suggestive of mild chronic small vessel ischemic changes. 4. Foci of susceptibility artifact identified within the left frontal lobe and right middle frontal gyrus. Findings may be associated with tiny cavernoma or areas of microhemorrhage. ERVICAL SPINE WO CONTRAST EXAMINATION: Magnetic resonance imaging (MRI) of the cervical spine without contrast 06/07/2021 1:45 PM HISTORY: Cervical spondylosis on CT. Gait disorder for past 2 weeks. TECHNIQUE: Multiplanar multi-weighted MRI of the cervical spine was performed without intravenous contrast using the standard cervical spine protocol. Contrast information: None administered COMPARISON: CT cervical spine 06/06/2021. FINDINGS: There is 2 mm retrolisthesis of C6 on C7. Mild disc height loss at C5-C6 and C6- C7. No significant marrow edema. Mild to moderate intramarginal osteophytosis. No acute fracture. Precervical junction is intact. Vertebral artery flow voids are maintained. Skull base appears intact. There is no prevertebral edema. No paraspinal soft tissue abnormality. C2-C3: Disc is normal in configuration. There is moderate to severe left facet arthropathy and moderate right facet arthropathy. Mild uncovertebral joint disease. Moderate to severe left neuroforaminal stenosis. Mild spinal canal stenosis. C3-C4: There is a posterior disc osteophyte complex asymmetric to the left. There is severe left and moderate right facet arthropathy. Moderate left uncovertebral joint disease. Severe left neural foraminal stenosis. Moderate right neuroforaminal stenosis. Moderate spinal canal stenosis with deformity of the cord without cord signal alteration. C4-C5: There is a posterior disc osteophyte complex. Moderate facet arthropathy. Moderate uncovertebral joint disease, right greater the left. Severe bilateral neuroforaminal stenosis. Severe spinal canal stenosis, exacerbated by ligamentum flavum infolding. There is cord signal alteration at this level. C5-C6: There is a posterior disc osteophyte complex asymmetric to the right. Mild facet arthropathy. Moderate right and mild to moderate left uncovertebral disease. Moderate spinal canal stenosis with mild deformity of the cord. Severe right and moderate left neuroforaminal stenosis. C6-C7: Posterior disc osteophyte complex with mild facet arthropathy. Mild uncovertebral joint disease. Moderate bilateral neuroforaminal stenosis. Moderate spinal canal stenosis with mild form of the cord. No cord signal alteration. C7-T1: Mild disc bulge. No neuroforaminal or spinal canal stenosis. IMPRESSION: Changes of the cervical spine as described in detail above. Severe spinal canal stenosis at C4-C5 without compression and cord signal alteration which may reflect cord edema or myelomalacia. Justicifation of Admission Dx: Justifications for Admission: Justification of Admission Dx: Yes Stroke - Ischemic: Stroke-Ischemic LINN CHAVEZ MD Jun 08, 2021 08:54
[2021-06-08] MEDS: METHADONE PO SCH (09:00)
[2021-06-08] MEDS ORDERED: METHADONE (DAILY MAINT DOSE) 100 MG/100 ML SOLUTION PO SCH (09:00)
[2021-06-08 11:03] VITALS: BP 122/70
--- NOTE | 2021-06-08 11:36 | PDOC ---
[employer] PROGRESS NOTE Date of Service DOS: DATE: 06/08/21 TIME: 11:35 Chief Complaint Chief Complaint cervical stenosis, w/ right hemipareiss, weakness, cannot ambulate TIA or CVA syndrome,. New stroke symptoms with worsenign of residual prior right hemiparesis, previous stroke Hypertension opioid dependence, prior abuse, on methadone History of Present Illness History of Present Illness cont same, MRI brain looks OK consult neurosurg, cervical spinal stenosis more likely swallow OK cont home methadone Neuro consult following Vitals/I&O Vitals/I&O: Vital Signs Date Time Temp Pulse Resp B/P (MAP) Pulse Ox O2 Delivery O2 Flow Rate FiO2 06/08/21 11:03 98.0 65 18 122/70 (87) 92 Room Air 98.0 I & O 06/07/21 06/07/21 06/08/21 15:00 23:00 07:00 Intake Total 100 ml 250 ml 200 ml Balance 100 ml 250 ml 200 ml Physical Exam General: Alert, Oriented X3, Cooperative, mild distress (pain, back pain, is late getting his methadone) Heart: Normal S1 Lungs: Clear Abdomen: Normal bowel sounds, Soft Extremities: No cyanosis Skin: No breakdown Review of Systems Review of Systems: right arm and leg weakness, with tingling, he now reports this has been more gradual in onset, over weeks Comment Review of Relevant I have reviewed the following items eryn (where applicable) has been applied. Medications: Current Medications Medications (Trade) Dose Ordered Sig/Tushar Route PRN Reason Start Time Stop Time Status Last Admin Dose Admin Ketorolac Tromethamine (Toradol 30mg Vial) 30 mg 1X ONCE IVP 06/07/21 17:30 06/07/21 17:31 DC 06/07/21 17:36 Lidocaine (Lidoderm) 1 patch DAILY TD 06/07/21 17:30 06/08/21 08:39 Lisinopril (Prinivil) 20 mg DAILY PO 06/08/21 09:00 06/08/21 08:39 Senna/Docusate Sodium (Senna Plus) 1 tab BID PO 06/07/21 21:00 06/08/21 08:38 Triamcinolone Acetonide (Kenalog 0.1%) 1 dhruv BID TP 06/07/21 21:00 06/08/21 08:40 Pregabalin (Lyrica) 100 mg BID PO 06/07/21 21:00 06/08/21 08:38 Potassium Chloride/Dextrose/ Sod Cl 1,000 ml @ 100 mls/hr Q10H IV 06/08/21 08:00 06/08/21 08:38 Justifications for Admission TIA Indications Hemodynamically unstable?: No Persistent neurologic signs?: Yes Cardiomyopathy/Valvular diseas: No Severe hypertension?: No Cardiac arrhythmia?: No Other Justification CELSO DOMINGUEZ MD Jun 08, 2021 11:36
--- NOTE | 2021-06-08 12:23 | NUR ---
SS following up with discharge planning. SS reviewed pt chart and discussed with pt RN. Pt is currently on room air. COVID19 negative. PO diet. Neurology following. PT/OT recommended acute rehabilitation. SS met with pt in room and discussed discharge planning and acute rehabilitation. Pt agreeable to acute rehabilitation and requested referral to [facility], ; fax [phone], due to previous experience. SS phoned and faxed referral as requested. SS will continue to follow for discharge planning. Addendum: 06/08/21 at 1357 by ANURAG HALE SS Pt accepted at [facility] pending insurance approval.
[2021-06-08 15:00] VITALS: BP 143/61
[2021-06-08 19:50] VITALS: BP 137/72
[2021-06-08] MEDS: PATCH REMOVAL. MC SCH (21:00)
[2021-06-08] MEDS: SIMVASTATIN 40 MG TABLET. PO SCH (21:02)
[2021-06-08 23:15] VITALS: BP 136/77
[2021-06-09 03:10] VITALS: BP 145/78
[2021-06-09] MEDS: POTASSIUM CL 20MEQ D5-0.45NACL 1,000 ML IV SCH ×2 (06:06→17:09)
[2021-06-09 07:00] VITALS: BP 131/82
[2021-06-09] MEDS ORDERED: METHADONE (DAILY MAINT DOSE) 100 MG/100 ML SOLUTION PO SCH (09:00)
[2021-06-09] MEDS: ASPIRIN ENTERIC COATED 325 MG TABLET.DR. PO SCH (09:05)
[2021-06-09] MEDS: SENNOSIDES/DOCUSATE 8.6/50MG TABLET. PO SCH ×2 (09:05→21:37)
[2021-06-09] MEDS: PREGABALIN 50 MG CAPSULE PO SCH ×2 (09:07→21:38)
[2021-06-09] MEDS: LISINOPRIL 20 MG TABLET PO SCH (09:07)
[2021-06-09] MEDS: LIDOCAINE (700MG/PATCH) PATCH. TD SCH (09:08)
--- NOTE | 2021-06-09 10:39 | PDOC ---
PROGRESS NOTES Date of Service DATE: 06/09/21 TIME: 10:36 Assessment No new stroke on MRI, had right hemiparesis with previous stroke. 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 Does have severe cervical spondylosis with myelopathy changes at C4-5 Hypertension Favorable lipid profile Plan Awaiting neurosurgery consult Aspirin and atorvastatin Watch blood pressure Rehabilitation modalities Echocardiogram, they say he had one a few weeks ago but nothing in the chart yet Subjective No new complaints Objective Vital Signs Date Time Temp Pulse Resp B/P (MAP) Pulse Ox O2 Delivery O2 Flow Rate FiO2 06/09/21 09:07 52 131/82 06/09/21 07:00 98.2 18 95 Room Air 98.2 Intake and Output 06/09/21 07:00 Intake Total 1100 ml Output Total 300 ml Balance 800 ml Intake Oral 1100 ml Output Urine Total 300 ml # Voids 2 PHYSICAL EXAM Alert. Oriented to time, place and person. PERRL. EOMI. CN: Slight right central facial weakness, otherwise no focal findings. Muscle tone: normal. Muscle strength: 3/5 right hemiparesis DTR: 2+ Plantar reflex: Flexor Gait: not examined in bed. Sensory exam: Right hemihypesthesia No cerebellar signs elicited. Review of Relevant I have reviewed the following items eryn (where applicable) has been applied. Medications Current Medications Iohexol (Omnipaque 300 Mg/ml) 75 ml 1X ONCE IV Last administered on 06/06/21at 12:44; Start 06/06/21 at 12:30; Stop 06/06/21 at 12:31; Status DC Info (CONTRAST GIVEN -- Rx MONITORING) 1 each PRN DAILY PRN MC SEE COMMENTS; Start 06/06/21 at 12:30; Stop 06/08/21 at 12:29; Status DC Atorvastatin Calcium (Lipitor) 80 mg QHS PO ; Start 06/06/21 at 21:00; Stop 06/07/21 at 09:07; Status DC Acetaminophen (Tylenol) 650 mg PRN Q6HRS PRN PO MILD PAIN / TEMP > 100.3'F Last administered on 06/08/21at 21:07; Start 06/06/21 at 14:15 Aspirin (Ecotrin) 325 mg DAILYWBKFT PO Last administered on 06/09/21at 09:05; Start 06/07/21 at 08:00 Aspirin (Aspirin Rectal Supp) 300 mg PRN DAILY PRN [place] IF UNABLE TO TAKE PO; Start 06/06/21 at 14:15 Ondansetron HCl (Zofran) 4 mg PRN Q8HRS PRN IVP NAUSEA/VOMITING Last administered on 06/07/21at 06:16; Start 06/06/21 at 15:00; Stop 06/07/21 at 14:59; Status DC Morphine Sulfate (Morphine Sulfate) 2 mg PRN Q2HR PRN IVP PAIN Last administered on 06/07/21at 06:17; Start 06/06/21 at 15:00; Stop 06/07/21 at 14:59; Status DC Acetaminophen (Tylenol) 650 mg PRN Q4HRS PRN PO FEVER > 100.3'F; Start 06/06/21 at 15:00; Stop 06/07/21 at 14:59; Status Cancel Methylnaltrexone [place] (Relistor) 12 mg 1X ONCE SQ Last administered on 06/06/21at 22:12; Start 06/06/21 at 19:15; Stop 06/06/21 at 19:16; Status DC Nystatin (Nystop) 1 divya BID TP Last administered on 06/08/21at 21:03; Start 06/06/21 at 21:00 Atorvastatin Calcium (Lipitor) 10 mg QHS PO ; Start 06/07/21 at 21:00; Stop 06/07/21 at 19:33; Status DC Non-Formulary Medication (Methadone Hcl ) 165 mg DAILY PO Last administered on 06/08/21at 09:00; Start 06/07/21 at 11:00; Stop 06/08/21 at 10:59; Status DC Ketorolac Tromethamine (Toradol 30mg Vial) 30 mg 1X ONCE IVP Last administered on 06/07/21at 17:36; Start 06/07/21 at 17:30; Stop 06/07/21 at 17:31; Status DC Lidocaine (Lidoderm) 1 patch DAILY TD Last administered on 06/09/21at 09:08; Start 06/07/21 at 17:30 Miscellaneous (Lidoderm Patch Removal) 1 ea QHS MC Last administered on 06/08/21at 21:00; Start 06/07/21 at 21:00 Lisinopril (Prinivil) 20 mg DAILY PO Last administered on 06/09/21at 09:07; Start 06/08/21 at 09:00 Senna/Docusate Sodium (Senna Plus) 1 tab BID PO Last administered on 06/09/21at 09:05; Start 06/07/21 at 21:00 Simvastatin (Zocor) 40 mg HS PO Last administered on 06/08/21at 21:02; Start 06/07/21 at 21:00 Triamcinolone Acetonide (Kenalog 0.1%) 1 divya BID TP Last administered on 06/08/21at 21:03; Start 06/07/21 at 21:00 Pregabalin (Lyrica) 100 mg BID PO Last administered on 06/09/21at 09:07; Start 06/07/21 at 21:00 Potassium Chloride/Dextrose/ Sod Cl 1,000 ml @ 100 mls/hr Q10H IV Last administered on 06/09/21at 06:06; Start 06/08/21 at 08:00 Methadone HCl (Dolophine) 165 mg DAILY PO ; Start 06/08/21 at 09:00; Status Cancel Methadone HCl (Dolophine) 165 mg DAILY PO ; Start 06/09/21 at 09:00; Status Cancel Non-Formulary Medication (Methadone Hcl ) 165 mg DAILY PO ; Start 06/09/21 at 09:00 Active Scripts Active Reported Colace 2-in-1 Tablet (Sennosides/Docusate Sodium) 1 Each Tablet 1 Each PO BID Lisinopril 20 Mg Tablet 1 Tab PO DAILY Pregabalin 100 Mg Capsule 1 Cap PO BID Triamcinolone Acetonide 0.1% Oint (Triamcinolone Acetonide) 15 Gm Oint...g. 1 Divya TP BID Simvastatin 40 Mg Tablet 40 Mg PO HS Methadone Hcl 40 Mg Tablet.carlita 165 Mg PO DAILY Vitals/I & O Vital Sign - Last 24 Hours 06/08/21 06/08/21 06/08/21 06/08/21 11:03 15:00 19:50 20:00 Temp 98.0 97.1 98.4 98.0 97.1 98.4 Pulse 65 63 46 Resp 18 18 18 B/P (MAP) 122/70 (87) 143/61 (88) 137/72 (93) Pulse Ox 92 93 95 O2 Delivery Room Air Room Air Room Air Room Air 06/08/21 06/09/21 06/09/21 06/09/21 23:15 03:10 07:00 09:07 Temp 98.4 97.8 98.2 98.4 97.8 98.2 Pulse 43 60 61 52 Resp 18 B/P (MAP) 136/77 (96) 145/78 (100) 131/82 (98) 131/82 Pulse Ox 96 95 95 O2 Delivery Room Air Room Air Room Air Intake and Output 06/08/21 06/08/21 06/09/21 15:00 23:00 07:00 Intake Total 500 ml 500 ml 100 ml Output Total 300 ml Balance 500 ml 200 ml 100 ml Justicifation of Admission Dx: Justifications for Admission: Justification of Admission Dx: Yes Stroke - Ischemic: Stroke-Ischemic LINN CHAVEZ MD Jun 09, 2021 10:39
[2021-06-09 11:00] VITALS: BP 120/68
[2021-06-09] MEDS: METHADONE PO SCH (11:09)
[2021-06-09] MEDS: TRIAMCINOLONE ACETONIDE 0.1% TOPICAL OINTMENT 15GM TUBE. TP SCH ×2 (11:09→21:38)
[2021-06-09] MEDS: NYSTATIN TOPICAL POWDER 15GM BOTTLE. TP SCH ×2 (11:09→21:00)
--- NOTE | 2021-06-09 12:49 | NUR ---
SS following up with discharge planning. SS reviewed pt chart and discussed with pt RN. Pt is currently on room air. COVID19 negative. PT/OT recommended acute rehabilitation. Pt accepted at [facility], ; fax [phone], pending insurance approval. Consult for Neurosurgery placed on 06/07/2021 for Cervical Stenosis. Currently awaiting Dr. Akers to complete consult and provide recommendations. SS met with pt and in the event that insurance denies acute rehabilitation pt is agreeable to home healthcare with no preference of company. SS will continue to follow for discharge planning.
--- NOTE | 2021-06-09 14:30 | PDOC ---
[employer] PROGRESS NOTE Date of Service DOS: DATE: 06/09/21 TIME: 14:28 Chief Complaint Chief Complaint cervical stenosis, w/ right hemipareiss, weakness, cannot ambulate less likely TIA, apperance on admit, prior CVA, syndrome,. Hypertension opioid dependence, prior abuse, on methadone History of Present Illness History of Present Illness consult neurosurg, cervical spinal stenosis more likely swallow OK cont home methadone Neuro consult following change from DNR to full code Vitals/I&O Vitals/I&O: Vital Signs Date Time Temp Pulse Resp B/P (MAP) Pulse Ox O2 Delivery O2 Flow Rate FiO2 06/09/21 11:00 98.4 62 20 120/68 (85) 94 Room Air 98.4 I & O 06/08/21 06/08/21 06/09/21 14:59 22:59 06:59 Intake Total 500 ml 500 ml 100 ml Output Total 300 ml Balance 500 ml 200 ml 100 ml Physical Exam General: Alert, Oriented X3, Cooperative, mild distress (pain, back pain, is late getting his methadone) Heart: Normal S1 Lungs: Clear Abdomen: Normal bowel sounds, Soft Extremities: No cyanosis Skin: No breakdown Review of Systems Review of Systems: no change, Comment Review of Relevant I have reviewed the following items eryn (where applicable) has been applied. Medications: Current Medications Medications (Trade) Dose Ordered Sig/Tushar Route PRN Reason Start Time Stop Time Status Last Admin Dose Admin Non-Formulary Medication (Methadone Hcl ) 165 mg DAILY PO 06/09/21 09:00 06/09/21 11:09 Justifications for Admission TIA Indications Hemodynamically unstable?: No Persistent neurologic signs?: Yes Cardiomyopathy/Valvular diseas: No Severe hypertension?: No Cardiac arrhythmia?: No Other Justification CELSO DOMINGUEZ MD Jun 09, 2021 14:30
[2021-06-09 15:00] VITALS: BP 132/66
--- NOTE | 2021-06-09 16:23 | PDOC ---
Provider Note Date of Service: DATE: 06/09/21 TIME: 16:02 Provider Note Patient seen and examined at 1600 consulted for cervical stenosis/ cervical myelopathy reports increased right sided weakness over the last few months history of stroke with right hemiparesis in 2013 on exam muscle strength 3/5 right hemiparesis MRI cervical spine with severe stenosis C4-5 Cervical stenosis with myelopathy discussed anterior cervical discectomy C4-5, I explained that in the future he may possibly require posterior surgery discussed the technique, risks and expected post op course . all questions answered Justifications for Admission TIA Indications Hemodynamically unstable?: No Persistent neurologic signs?: Yes Cardiomyopathy/Valvular diseas: No Severe hypertension?: No Cardiac arrhythmia?: No Other Justification MICHEAL CHILEL MD Jun 09, 2021 16:22
[2021-06-09 19:00] VITALS: BP 128/65
[2021-06-09] MEDS: PATCH REMOVAL. MC SCH (21:00)
[2021-06-09] MEDS: SIMVASTATIN 40 MG TABLET. PO SCH (21:38)
[2021-06-09 23:27] VITALS: BP 172/85
[2021-06-10] VITALS (9 sets, daily range): BP systolic 107–160; BP diastolic 61–81
[2021-06-10] MEDS: POTASSIUM CL 20MEQ D5-0.45NACL 1,000 ML IV SCH ×4 (05:11→22:30)
[2021-06-10] MEDS ORDERED: ceFAZolin SODIUM 1 GM in IV NORMAL SALINE 1000ML BAG 1,000 ML IRR ONE (06:00)
[2021-06-10] MEDS ORDERED: THROMBIN TOPICAL 20,000 UNIT SPRAY.SYRN KIT TP ONE (07:41)
[2021-06-10] MEDS ORDERED: GELATIN SPONGE SIZE 100. ONE (07:41)
[2021-06-10] MEDS ORDERED: BUPIVACAINE-EPI 0.5% 30 ML VIAL KIT. ONE (07:41)
--- NOTE | 2021-06-10 07:50 | PDOC ---
[employer] PROGRESS NOTE Date of Service DOS: DATE: 06/10/21 TIME: 07:48 Chief Complaint Chief Complaint cervical stenosis, severe at c4-c5. w/ right hemipareiss, weakness, cannot ambulate cervical myelopathy history of stroke 2013 Hypertension opioid dependence, prior abuse, on methadone History of Present Illness History of Present Illness Neurosurg to proceed today with anterior cervical discectomy C4-5, on methadone for opioid tolerance, prior abuse full code discussed, reviewed, < 15 minutes Vitals/I&O Vitals/I&O: Vital Signs Date Time Temp Pulse Resp B/P (MAP) Pulse Ox O2 Delivery O2 Flow Rate FiO2 06/10/21 03:08 98.0 44 18 137/76 (96) 96 Room Air 98.0 I & O 06/09/21 06/09/21 06/10/21 15:00 23:00 07:00 Intake Total 360 ml 180 ml Output Total 100 ml Balance 360 ml 80 ml Physical Exam Physical Exam: calm, pleasant, and in good spirits General: Alert, Oriented X3, Cooperative, No acute distress Heart: Normal S1 Lungs: Clear Abdomen: Normal bowel sounds, Soft Extremities: No cyanosis Skin: No breakdown Comment Review of Relevant I have reviewed the following items eryn (where applicable) has been applied. Medications: Current Medications Medications (Trade) Dose Ordered Sig/Tushar Route PRN Reason Start Time Stop Time Status Last Admin Dose Admin Non-Formulary Medication (Methadone Hcl ) 165 mg DAILY PO 06/09/21 09:00 06/09/21 11:09 Justifications for Admission TIA Indications Hemodynamically unstable?: No Persistent neurologic signs?: Yes Cardiomyopathy/Valvular diseas: No Severe hypertension?: No Cardiac arrhythmia?: No Other Justification CLESO DOMINGUEZ MD Jun 10, 2021 07:50
[2021-06-10] MEDS: SENNOSIDES/DOCUSATE 8.6/50MG TABLET. PO SCH ×2 (07:56→22:24)
[2021-06-10] MEDS: LISINOPRIL 20 MG TABLET PO SCH (07:57)
[2021-06-10] MEDS: PREGABALIN 50 MG CAPSULE PO SCH ×2 (07:57→22:19)
[2021-06-10] MEDS: METHADONE PO SCH (07:58)
[2021-06-10] MEDS: ASPIRIN ENTERIC COATED 325 MG TABLET.DR. PO SCH (08:00)
[2021-06-10] MEDS: LIDOCAINE (700MG/PATCH) PATCH. TD SCH (09:00)
[2021-06-10] MEDS: NYSTATIN TOPICAL POWDER 15GM BOTTLE. TP SCH ×2 (09:00→21:00)
[2021-06-10] MEDS ORDERED: PHENYLEPHRINE in 0.9% NACL PF 1 MG/10 ML SYRINGE. IV ONE (09:39)
[2021-06-10] MEDS ORDERED: DEXAMETHASONE SOD PHOS 4 MG/ML VIAL ONE (09:39)
[2021-06-10] MEDS ORDERED: PROPOFOL 10 MG/ML (20ML) VIAL. IV ONE (09:39)
[2021-06-10] MEDS ORDERED: ONDANSETRON PF 4 MG/2 ML VIAL. ONE (09:39)
[2021-06-10] MEDS ORDERED: LIDOCAINE 2% PF 5 ML VIAL. ONE (09:39)
[2021-06-10] MEDS ORDERED: SUCCINYLCHOLINE 200 MG/10 ML VIAL. ONE (09:40)
[2021-06-10] MEDS ORDERED: ROCURONIUM 50 MG/5 ML VIAL. ONE (09:41)
[2021-06-10] MEDS ORDERED: PROPOFOL 50 ML IV ONE ×3 (09:42→15:21)
[2021-06-10] MEDS ORDERED: REMIFENTANIL 2 MG VIAL. IV ONE (09:46)
[2021-06-10] MEDS ORDERED: PHENYLEPHRINE 10 MG/ML VIAL. ONE (09:56)
--- NOTE | 2021-06-10 12:02 | CARD ---
MR#: [id number] Date of Study: 06/09/2021 Ordering Physician: LINN CHAVEZ, Referring Physician: LINN CHAVEZ, Tech: LinetteNatalie Oneal, [facility] APPROVED REPORT EXAM: Two-dimensional and M-mode echocardiogram with Doppler and color Doppler. Other Information Quality : AverageHR: 78bpm INDICATION COPD Dyspnea RISK FACTORS Hypertension Hyperlipidemia 2D DIMENSIONS Left Atrium(2D)3.7 (1.6-4.0cm)IVSd1.0 (0.7-1.1cm) Aortic Root(2D)4.1 (2.0-3.7cm)LVDd6.4 (3.9-5.9cm) LVOT Diameter2.3 (1.8-2.4cm)PWd1.3 (0.7-1.1cm) LVDs4.0 (2.5-4.0cm)FS (%) 36.6 % SV134.3 ml Aortic Valve AoV Peak Teodoro.123.8cm/sAoV VTI32.5cm AO Peak GR.6.1mmHgLVOT VTI 26.06cm AO Mean GR.4mmHgAI P 1/2 [id number] Mitral Valve MV E Zvqnormk56.1cm/sMV DECEL MIBZ161id MV A Mfnowmhz66.5cm/sE/A Ratio0.7 TDI Lateral E' P. V9.01cm/sMedial E' P. V6.89cm/s E/Lateral E'6.1E/Medial E'8.0 Tricuspid Valve TR P. Vhtvdnld431hj/sRAP GOETRJWX7xvKr TR Peak Gr.68hsKoOUAY73gbDb Pulmonary Vein S1 Pujeltst64.5cm/sS2 Esqzceku03.16cm/s D2 Fnucjnob59.2cm/sPVa [id number] LEFT VENTRICLE The Left Ventricle is mildly dilated. There is borderline to mild concentric left ventricular hypertr ophy. The systolic function is mildly impaired. The Ejection Fraction is 40-45%. There is mild global hypokinesis of the left ventricle. Transmitral Doppler flow pattern is Grade I-abnormal relaxation p attern. RIGHT VENTRICLE The right ventricle is mildly dilated. There is normal right ventricular wall thickness. The right ve ntricular systolic function is normal. ATRIA The left atrium size is normal. The right atrium is mildly dilated. The interatrial septum is intact with no evidence for an atrial septal defect or patent foramen ovale as noted on 2-D or Doppler imagi ng. AORTIC VALVE The aortic valve is normal in structure and function. Doppler and Color Flow revealed trace aortic re gurgitation. There is no significant aortic valvular stenosis. Calculated aortic valve area is 2.94 c m2 with maximum pressure gradient of 7 mmHg and mean pressure gradient of 5 mmHg. MITRAL VALVE The mitral valve is normal in structure and function. There is no evidence of mitral valve prolapse. There is no mitral valve stenosis. Doppler and Color-flow revealed trace mitral regurgitation. TRICUSPID VALVE The tricuspid valve is normal in structure and function. Doppler and Color Flow revealed trace tricus pid regurgitation. There is no tricuspid valve stenosis. PULMONIC VALVE The pulmonic valve is not well visualized. Doppler and Color Flow revealed trace pulmonic valvular re gurgitation. GREAT VESSELS The aortic root is mildly enlarged measuring 4.10 cm. The ascending aorta is borderline enlarged saumya uring 3.52 cm. The IVC is normal in size and collapses >50% with inspiration. PERICARDIAL EFFUSION There is no evidence of significant pericardial effusion. Critical Notification Critical Value: No <Conclusion> The Left Ventricle is mildly dilated. The systolic function is mildly impaired. The Ejection Fraction is 40-45%. There is mild global hypokinesis of the left ventricle. There is borderline to mild concentric left ventricular hypertrophy. Doppler and Color Flow revealed trace aortic regurgitation. There is no significant aortic valvular stenosis. Doppler and Color-flow revealed trace mitral regurgitation. Doppler and Color Flow revealed trace tricuspid regurgitation. The aortic root is mildly enlarged measuring 4.10 cm. Signed by : Jules Baxter MD Electronically Approved : 06/10/2021 12:02:07
--- NOTE | 2021-06-10 12:41 | NUR ---
SS following up with discharge planning. SS reviewed pt chart and discussed with pt RN. Pt is currently on room air. COVID19 negative. Pt had anterior cervical discectomy of C4-5 this AM. PT/OT recommended acute rehabilitation. Pt accepted at [facility], ; fax [phone], pending insurance authorization. Insurance requesting updated PT/OT notes at this time. SS will continue to follow for discharge planning.
[2021-06-10] MEDS ORDERED: fentaNYL PF VIAL 100 MCG/2 ML VIAL ONE (13:15)
[2021-06-10] MEDS ORDERED: GLYCOPYRROLATE 1 MG/5 ML VIAL. ONE (13:23)
[2021-06-10] MEDS ORDERED: HYDROmorphone 2 MG/ML VIAL ONE (13:41)
[2021-06-10] MEDS ORDERED: SEVOFLURANE > 120 MINUTES. IH ONE ×2 (13:42→14:35)
[2021-06-10] MEDS ORDERED: ATROPINE 1 MG/10 ML DISP.SYRINGE. ONE (13:51)
[2021-06-10] MEDS ORDERED: NEOSTIGMINE METHYLSULFATE 5 MG/5 ML SYRINGE. ONE (13:52)
[2021-06-10] MEDS ORDERED: IV RINGERS,LACTATED 1000ML 1,000 ML IV SCH (15:45)
[2021-06-10] MEDS ORDERED: fentaNYL PF VIAL 100 MCG/2 ML VIAL IVP PRN ×2 (15:45)
[2021-06-10] MEDS ORDERED: MORPHINE SULFATE 2 MG/ML INJ. IVP PRN (15:45)
[2021-06-10] MEDS ORDERED: PROCHLORPERAZINE 10 MG/2 ML VIAL. IVP PRN (15:45)
[2021-06-10] MEDS ORDERED: HYDROmorphone 2 MG/ML VIAL IVP PRN (15:45)
[2021-06-10] MEDS ORDERED: MAG HYDROX/ALUMINUM HYD/SIMETH 30 ML ORAL.SUSP PO PRN (16:15)
[2021-06-10] MEDS ORDERED: CALCIUM CARBONATE 500 MG TAB.CHEW PO PRN (16:15)
[2021-06-10] MEDS ORDERED: ACETAMINOPHEN 325 MG TABLET. PO PRN (16:15)
[2021-06-10] MEDS ORDERED: diphenhydrAMINE HCL 25 MG CAPSULE PO PRN (16:15)
[2021-06-10] MEDS ORDERED: NALOXONE 0.4 MG/ML VIAL. IV PRN (16:15)
[2021-06-10] MEDS ORDERED: 0.9 % SODIUM CHLORIDE 10 ML DISP.SYRIN. IV PRN (16:15)
[2021-06-10] MEDS ORDERED: MAGNESIUM HYDROXIDE 2,400 MG/30 ML ORAL.SUSP. PO PRN (16:15)
[2021-06-10] MEDS: TRIAMCINOLONE ACETONIDE 0.1% TOPICAL OINTMENT 15GM TUBE. TP SCH ×2 (18:12→21:00)
[2021-06-10] MEDS: SIMVASTATIN 40 MG TABLET. PO SCH (21:00)
[2021-06-10] MEDS: PATCH REMOVAL. MC SCH (21:00)
[2021-06-10] MEDS: DOCUSATE SODIUM 100 MG CAPSULE. PO SCH (22:18)
[2021-06-11 02:40] VITALS: BP 134/73
[2021-06-11 05:31] LABS: BASO % 0 % (0-3); EOS # 0.1 x10^3/uL (0.0-0.7); EOS % 1 % (0-3); HEMATOCRIT 35.7 % (39.0-53.0); HEMOGLOBIN 11.9 g/dL (13.0-17.5); LYMPH # 0.8 x10^3/uL (1.0-4.8); LYMPH % 10 % (24-48); MEAN CORPUSCULAR HEMOGLOBIN 30 pg (25-35); MEAN CORPUSCULAR HGB CONC 33 g/dL (31-37); MEAN CORPUSCULAR VOLUME 88 fL (79-100); MONO # 0.7 x10^3/uL (0.0-1.1); MONO % 9 % (0-9); NEUT # 6.4 x10^3/uL (1.8-7.7); NEUT % 80 % (31-73); PLATELET COUNT 178 x10^3/uL (140-400); RED BLOOD COUNT 4.04 x10^6/uL (4.30-5.70); RED CELL DISTRIBUTION WIDTH 15.5 % (11.5-14.5)
[2021-06-11] MEDS: POTASSIUM CL 20MEQ D5-0.45NACL 1,000 ML IV SCH ×2 (05:35→06:00)
[2021-06-11 05:48] LABS: ALBUMIN 2.9 g/dL (3.4-5.0); ALBUMIN/GLOBULIN RATIO 0.9 (1.0-1.7); CALCIUM 8.3 mg/dL (8.5-10.1); CREATININE 0.8 mg/dL (0.7-1.3); POTASSIUM 4.1 mmol/L (3.5-5.1); TOTAL BILIRUBIN 0.3 mg/dL (0.2-1.0); TOTAL PROTEIN 6.1 g/dL (6.4-8.2)
[2021-06-11 07:00] VITALS: BP 128/78
[2021-06-11] MEDS: METHADONE PO SCH (08:36)
[2021-06-11] MEDS: PREGABALIN 50 MG CAPSULE PO SCH ×2 (08:36→09:05)
[2021-06-11] MEDS: ASPIRIN ENTERIC COATED 325 MG TABLET.DR. PO SCH (08:36)
[2021-06-11] MEDS: SENNOSIDES/DOCUSATE 8.6/50MG TABLET. PO SCH (08:36)
[2021-06-11] MEDS: LISINOPRIL 20 MG TABLET PO SCH (08:37)
[2021-06-11] MEDS: LIDOCAINE (700MG/PATCH) PATCH. TD SCH (08:38)
[2021-06-11] MEDS: TRIAMCINOLONE ACETONIDE 0.1% TOPICAL OINTMENT 15GM TUBE. TP SCH (08:38)
[2021-06-11] MEDS: NYSTATIN TOPICAL POWDER 15GM BOTTLE. TP SCH (08:39)
[2021-06-11] MEDS: DOCUSATE SODIUM 100 MG CAPSULE. PO SCH (08:41)
--- NOTE | 2021-06-11 09:19 | PDOC ---
PROGRESS NOTES Date of Service DATE: 06/11/21 TIME: 09:17 Assessment Severe cervical spondylosis with myelopathy changes at C4-5, status-post decompression on 06/10 No new stroke on MRI, had right hemiparesis with previous stroke. 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 Hypertension Favorable lipid profile Plan Aspirin and atorvastatin Watch blood pressure Rehabilitation modalities Subjective Already feeling better, does have some surgical pain Objective Vital Signs Date Time Temp Pulse Resp B/P (MAP) Pulse Ox O2 Delivery O2 Flow Rate FiO2 06/11/21 08:37 48 134/73 06/11/21 07:00 98.3 18 94 Room Air 98.3 06/10/21 16:24 10 Intake and Output 06/11/21 07:00 Intake Total 2110 ml Output Total 10 ml Balance 2100 ml Intake Oral 860 ml IV Total 1250 ml Estimated Blood Loss 10 ml # Voids 1 PHYSICAL EXAM Alert. Oriented to time, place and person. PERRL. EOMI. CN: Slight right central facial weakness, otherwise no focal findings. Muscle tone: normal.4/5 billaterally DTR: 2+ Plantar reflex: Flexor Gait: not examined in bed. Sensory exam: Right hemihypesthesia No cerebellar signs elicited. Review of Relevant I have reviewed the following items eryn (where applicable) has been applied. Labs Laboratory Tests Test 06/11/21 05:00 White Blood Count 8.0 x10^3/uL (4.0-11.0) Red Blood Count 4.04 x10^6/uL (4.30-5.70) Hemoglobin 11.9 g/dL (13.0-17.5) Hematocrit 35.7 % (39.0-53.0) Mean Corpuscular Volume 88 fL (79-100) Mean Corpuscular Hemoglobin 30 pg (25-35) Mean Corpuscular Hemoglobin Concent 33 g/dL (31-37) Red Cell Distribution Width 15.5 % (11.5-14.5) Platelet Count 178 x10^3/uL (140-400) Neutrophils (%) (Auto) 80 % (31-73) Lymphocytes (%) (Auto) 10 % (24-48) Monocytes (%) (Auto) 9 % (0-9) Eosinophils (%) (Auto) 1 % (0-3) Basophils (%) (Auto) 0 % (0-3) Neutrophils # (Auto) 6.4 x10^3/uL (1.8-7.7) Lymphocytes # (Auto) 0.8 x10^3/uL (1.0-4.8) Monocytes # (Auto) 0.7 x10^3/uL (0.0-1.1) Eosinophils # (Auto) 0.1 x10^3/uL (0.0-0.7) Basophils # (Auto) 0.0 x10^3/uL (0.0-0.2) Sodium Level 138 mmol/L (136-145) Potassium Level 4.1 mmol/L (3.5-5.1) Chloride Level 102 mmol/L (98-107) Carbon Dioxide Level 29 mmol/L (21-32) Anion Gap 7 (6-14) Blood Urea Nitrogen 14 mg/dL (8-26) Creatinine 0.8 mg/dL (0.7-1.3) Estimated GFR (Cockcroft-Gault) 95.0 BUN/Creatinine Ratio 18 (6-20) Glucose Level 112 mg/dL (70-99) Calcium Level 8.3 mg/dL (8.5-10.1) Total Bilirubin 0.3 mg/dL (0.2-1.0) Aspartate Amino Transf (AST/SGOT) 18 U/L (15-37) Alanine Aminotransferase (ALT/SGPT) 26 U/L (16-63) Alkaline Phosphatase 69 U/L (46-116) Total Protein 6.1 g/dL (6.4-8.2) Albumin 2.9 g/dL (3.4-5.0) Albumin/Globulin Ratio 0.9 (1.0-1.7) Laboratory Tests Test 06/11/21 05:00 White Blood Count 8.0 x10^3/uL (4.0-11.0) Red Blood Count 4.04 x10^6/uL (4.30-5.70) Hemoglobin 11.9 g/dL (13.0-17.5) Hematocrit 35.7 % (39.0-53.0) Mean Corpuscular Volume 88 fL (79-100) Mean Corpuscular Hemoglobin 30 pg (25-35) Mean Corpuscular Hemoglobin Concent 33 g/dL (31-37) Red Cell Distribution Width 15.5 % (11.5-14.5) Platelet Count 178 x10^3/uL (140-400) Neutrophils (%) (Auto) 80 % (31-73) Lymphocytes (%) (Auto) 10 % (24-48) Monocytes (%) (Auto) 9 % (0-9) Eosinophils (%) (Auto) 1 % (0-3) Basophils (%) (Auto) 0 % (0-3) Neutrophils # (Auto) 6.4 x10^3/uL (1.8-7.7) Lymphocytes # (Auto) 0.8 x10^3/uL (1.0-4.8) Monocytes # (Auto) 0.7 x10^3/uL (0.0-1.1) Eosinophils # (Auto) 0.1 x10^3/uL (0.0-0.7) Basophils # (Auto) 0.0 x10^3/uL (0.0-0.2) Sodium Level 138 mmol/L (136-145) Potassium Level 4.1 mmol/L (3.5-5.1) Chloride Level 102 mmol/L (98-107) Carbon Dioxide Level 29 mmol/L (21-32) Anion Gap 7 (6-14) Blood Urea Nitrogen 14 mg/dL (8-26) Creatinine 0.8 mg/dL (0.7-1.3) Estimated GFR (Cockcroft-Gault) 95.0 BUN/Creatinine Ratio 18 (6-20) Glucose Level 112 mg/dL (70-99) Calcium Level 8.3 mg/dL (8.5-10.1) Total Bilirubin 0.3 mg/dL (0.2-1.0) Aspartate Amino Transf (AST/SGOT) 18 U/L (15-37) Alanine Aminotransferase (ALT/SGPT) 26 U/L (16-63) Alkaline Phosphatase 69 U/L (46-116) Total Protein 6.1 g/dL (6.4-8.2) Albumin 2.9 g/dL (3.4-5.0) Albumin/Globulin Ratio 0.9 (1.0-1.7) Medications Current Medications Iohexol (Omnipaque 300 Mg/ml) 75 ml 1X ONCE IV Last administered on 06/06/21at 12:44; Start 06/06/21 at 12:30; Stop 06/06/21 at 12:31; Status DC Info (CONTRAST GIVEN -- Rx MONITORING) 1 each PRN DAILY PRN MC SEE COMMENTS; Start 06/06/21 at 12:30; Stop 06/08/21 at 12:29; Status DC Atorvastatin Calcium (Lipitor) 80 mg QHS PO ; Start 06/06/21 at 21:00; Stop 06/07/21 at 09:07; Status DC Acetaminophen (Tylenol) 650 mg PRN Q6HRS PRN PO MILD PAIN / TEMP > 100.3'F Last administered on 06/08/21at 21:07; Start 06/06/21 at 14:15 Aspirin (Ecotrin) 325 mg DAILYWBKFT PO Last administered on 06/11/21at 08:36; Start 06/07/21 at 08:00 Aspirin (Aspirin Rectal Supp) 300 mg PRN DAILY PRN TX IF UNABLE TO TAKE PO; Start 06/06/21 at 14:15 Ondansetron HCl (Zofran) 4 mg PRN Q8HRS PRN IVP NAUSEA/VOMITING Last administered on 06/07/21at 06:16; Start 06/06/21 at 15:00; Stop 06/07/21 at 14:59; Status DC Morphine Sulfate (Morphine Sulfate) 2 mg PRN Q2HR PRN IVP PAIN Last administered on 06/07/21at 06:17; Start 06/06/21 at 15:00; Stop 06/07/21 at 14:59; Status DC Acetaminophen (Tylenol) 650 mg PRN Q4HRS PRN PO FEVER > 100.3'F; Start 06/06/21 at 15:00; Stop 06/07/21 at 14:59; Status Cancel Methylnaltrexone [place] (Relistor) 12 mg 1X ONCE SQ Last administered on 06/06/21at 22:12; Start 06/06/21 at 19:15; Stop 06/06/21 at 19:16; Status DC Nystatin (Nystop) 1 divya BID TP Last administered on 06/11/21at 08:39; Start 06/06/21 at 21:00 Atorvastatin Calcium (Lipitor) 10 mg QHS PO ; Start 06/07/21 at 21:00; Stop 06/07/21 at 19:33; Status DC Non-Formulary Medication (Methadone Hcl ) 165 mg DAILY PO Last administered on 06/08/21at 09:00; Start 06/07/21 at 11:00; Stop 06/08/21 at 10:59; Status DC Ketorolac Tromethamine (Toradol 30mg Vial) 30 mg 1X ONCE IVP Last administered on 06/07/21 17:36; Start 06/07/21 at 17:30; Stop 06/07/21 at 17:31; Status DC Lidocaine (Lidoderm) 1 patch DAILY TD Last administered on 06/11/21 08:38; Start 06/07/21 at 17:30 Miscellaneous (Lidoderm Patch Removal) 1 ea QHS MC Last administered on 06/10/21at 21:00; Start 06/07/21 at 21:00 Lisinopril (Prinivil) 20 mg DAILY PO Last administered on 06/11/21at 08:37; Start 06/08/21 at 09:00 Senna/Docusate Sodium (Senna Plus) 1 tab BID PO Last administered on 06/11/21 08:36; Start 06/07/21 at 21:00 Simvastatin (Zocor) 40 mg HS PO Last administered on 06/10/21at 21:00; Start 06/07/21 at 21:00 Triamcinolone Acetonide (Kenalog 0.1%) 1 divya BID TP Last administered on 06/11/21 08:38; Start 06/07/21 at 21:00 Pregabalin (Lyrica) 100 mg BID PO Last administered on 06/11/21 08:36; Start 06/07/21 at 21:00 Potassium Chloride/Dextrose/ Sod Cl 1,000 ml @ 100 mls/hr Q10H IV Last administered on 06/10/21at 05:11; Start 06/08/21 at 08:00; Stop 06/11/21 at 09:05; Status DC Methadone HCl (Dolophine) 165 mg DAILY PO ; Start 06/08/21 at 09:00; Status Cancel Methadone HCl (Dolophine) 165 mg DAILY PO ; Start 06/09/21 at 09:00; Status Cancel Non-Formulary Medication (Methadone Hcl ) 165 mg DAILY PO Last administered on 06/11/21at 08:36; Start 06/09/21 at 09:00 Cefazolin Sodium 1 gm/Sodium Chloride 1,000 ml @ 1,000 mls/hr 1X ONCE IRR Last administered on 06/10/21at 14:04; Start 06/10/21 at 06:00; Stop 06/10/21 at 06:59; Status DC Gelatin (Gelfoam Size 100) 1 each STK-MED ONCE .ROUTE Last administered on 06/10/21at 14:04; Start 06/10/21 at 07:41; Stop 06/10/21 at 07:42; Status DC Bupivacaine HCl/ Epinephrine Bitart (Sensorcain-Epi 0.5% Kit) 30 ml STK-MED ONCE .ROUTE Last administered on 06/10/21at 14:04; Start 06/10/21 at 07:41; Stop 06/10/21 at 07:42; Status DC Thrombin 20,000 unit STK-MED ONCE TP Last administered on 06/10/21at 14:04; Start 06/10/21 at 07:41; Stop 06/10/21 at 07:42; Status DC Cefazolin Sodium/ Dextrose 50 ml @ As Directed STK-MED ONCE IV ; Start 06/10/21 at 09:23; Stop 06/10/21 at 09:23; Status DC Propofol (Diprivan) 200 mg STK-MED ONCE IV ; Start 06/10/21 at 09:39; Stop 06/10/21 at 09:39; Status DC Lidocaine HCl (Lidocaine Pf 2% Vial) 5 ml STK-MED ONCE .ROUTE ; Start 06/10/21 at 09:39; Stop 06/10/21 at 09:39; Status DC Dexamethasone Sodium Phosphate (Decadron) 4 mg STK-MED ONCE .ROUTE ; Start 06/10/21 at 09:39; Stop 06/10/21 at 09:39; Status DC Ondansetron HCl (Zofran) 4 mg STK-MED ONCE .ROUTE ; Start 06/10/21 at 09:39; Stop 06/10/21 at 09:39; Status DC Phenylephrine HCl (PHENYLEPHRINE in 0.9% NACL PF) 1 mg STK-MED ONCE IV ; Start 06/10/21 at 09:39; Stop 06/10/21 at 09:40; Status DC Succinylcholine Chloride (Anectine) 200 mg STK-MED ONCE .ROUTE ; Start 06/10/21 at 09:40; Stop 06/10/21 at 09:40; Status DC Rocuronium [place] (Zemuron) 50 mg STK-MED ONCE .ROUTE ; Start 06/10/21 at 09:41; Stop 06/10/21 at 09:41; Status DC Propofol 50 ml @ As Directed STK-MED ONCE IV ; Start 06/10/21 at 09:42; Stop 06/10/21 at 09:43; Status DC Remifentanil HCl (Ultiva) 2 mg STK-MED ONCE IV ; Start 06/10/21 at 09:46; Stop 06/10/21 at 09:46; Status DC Cefazolin Sodium/ Dextrose 50 ml @ 100 mls/hr 1X PREOP PRN IV PRIOR TO PROCEDURE Last administered on 06/10/21at 13:35; Start 06/11/21 at 06:00; Stop 06/11/21 at 18:00 Phenylephrine HCl (Jovon-Synephrine Inj) 10 mg STK-MED ONCE .ROUTE ; Start 06/10/21 at 09:56; Stop 06/10/21 at 11:57; Status DC Fentanyl Citrate (Fentanyl 2ml Vial) 100 mcg STK-MED ONCE .ROUTE ; Start 06/10/21 at 13:15; Stop 06/10/21 at 13:16; Status DC Glycopyrrolate (Robinul) 1 mg STK-MED ONCE .ROUTE ; Start 06/10/21 at 13:23; Stop 06/10/21 at 13:24; Status DC Hydromorphone HCl (Dilaudid) 2 mg STK-MED ONCE .ROUTE ; Start 06/10/21 at 13:41; Stop 06/10/21 at 13:41; Status DC Sevoflurane (Ultane) 90 ml STK-MED ONCE IH ; Start 06/10/21 at 13:42; Stop 06/10/21 at 13:42; Status DC Atropine Sulfate (ATROPINE 1mg SYRINGE) 1 mg STK-MED ONCE .ROUTE ; Start 06/10/21 at 13:51; Stop 06/10/21 at 13:52; Status DC Neostigmine [place] (Neostigmine Methylsulfate) 5 mg STK-MED ONCE .ROUTE ; Start 06/10/21 at 13:52; Stop 06/10/21 at 13:52; Status DC Propofol 50 ml @ As Directed STK-MED ONCE IV ; Start 06/10/21 at 14:14; Stop 06/10/21 at 14:14; Status DC Sevoflurane (Ultane) 90 ml STK-MED ONCE IH ; Start 06/10/21 at 14:35; Stop 06/10/21 at 14:35; Status DC Propofol 50 ml @ As Directed STK-MED ONCE IV ; Start 06/10/21 at 15:21; Stop 06/10/21 at 15:21; Status DC Fentanyl Citrate (Fentanyl 2ml Vial) 25 mcg PRN Q5MIN PRN IVP MILD PAIN 1-3; Start 06/10/21 at 15:45; Stop 06/11/21 at 15:44 Fentanyl Citrate (Fentanyl 2ml Vial) 50 mcg PRN Q5MIN PRN IVP MODERATE PAIN 4- 6; Start 06/10/21 at 15:45; Stop 06/11/21 at 15:44 Morphine Sulfate (Morphine Sulfate) 1 mg PRN Q10MIN PRN IVP SEVERE PAIN 7-10; Start 06/10/21 at 15:45; Stop 06/11/21 at 15:44 Ringer's Solution 1,000 ml @ 30 mls/hr Q24H IV Last administered on 06/10/21at 09:45; Start 06/10/21 at 15:45; Stop 06/11/21 at 03:44; Status DC Hydromorphone HCl (Dilaudid) 0.5 mg PRN Q10MIN PRN IVP SEVERE PAIN 7-10, 2nd CHOICE; Start 06/10/21 at 15:45; Stop 06/11/21 at 15:44 Prochlorperazine Edisylate (Compazine) 5 mg PACU PRN PRN IVP NAUSEA, MRX1; Start 06/10/21 at 15:45; Stop 06/11/21 at 15:44 Acetaminophen (Tylenol) 650 mg PRN Q6HRS PRN PO MILD PAIN / TEMP > 100.3'F Last administered on 06/10/21at 22:19; Start 06/10/21 at 16:15 Al Hydroxide/Mg Hydroxide (Mylanta Plus Xs) 30 ml PRN Q3HRS PRN PO HEARTBURN / GAS; Start 06/10/21 at 16:15 Calcium Carbonate/ Glycine (Tums) 500 mg PRN Q3HRS PRN PO INDIGESTION; Start 06/10/21 at 16:15 Diphenhydramine HCl (Benadryl) 25 mg PRN Q6HRS PRN PO ITCHING; Start 06/10/21 at 16:15 Naloxone HCl (Narcan) 0.1 mg PRN Q2MIN PRN IV SEE COMMENTS; Start 06/10/21 at 16:15 Sodium Chloride (Normal Saline Flush) 3 ml QSHIFT PRN IV AFTER MEDS AND BLOOD DRAWS; Start 06/10/21 at 16:15 Potassium Chloride/Dextrose/ Sod Cl 1,000 ml @ 75 mls/hr [id number] IV Last administered on 06/10/21at 22:30; Start 06/10/21 at 16:15 Docusate Sodium (Colace) 100 mg BID PO Last administered on 06/11/21at 08:41; Start 06/10/21 at 21:00 Magnesium Hydroxide (Milk Of Magnesia) 2,400 mg PRN Q12HR PRN PO CONSTIPATION; Start 06/10/21 at 16:15 Active Scripts Active Reported Colace 2-in-1 Tablet (Sennosides/Docusate Sodium) 1 Each Tablet 1 Each PO BID Lisinopril 20 Mg Tablet 1 Tab PO DAILY Pregabalin 100 Mg Capsule 1 Cap PO BID Triamcinolone Acetonide 0.1% Oint (Triamcinolone Acetonide) 15 Gm Oint...g. 1 Divya TP BID Simvastatin 40 Mg Tablet 40 Mg PO HS Methadone Hcl 40 Mg Tablet.carlita 165 Mg PO DAILY Vitals/I & O Vital Sign - Last 24 Hours 06/10/21 06/10/21 06/10/21 06/10/21 09:26 15:54 15:54 16:09 Temp 98.0 98.0 98.0 98.0 Pulse 66 47 46 Resp 15 20 22 B/P (MAP) 133/78 146/62 132/74 Pulse Ox 96 99 100 O2 Delivery Room Air Mask Simple Mask Room Air O2 Flow Rate 10 10 11/1106/10/21 06/10/21 06/10/21 16:24 16:39 16:54 17:20 Temp 98.0 98.0 Pulse 46 44 45 Resp 20 20 18 B/P (MAP) 132/74 142/76 146/78 Pulse Ox 100 100 100 O2 Delivery Simple Mask Room Air Room Air Room Air O2 Flow Rate 10 06/10/21 06/10/21 06/10/21 06/10/21 17:20 17:44 17:59 18:14 Temp 98.0 98.0 Pulse 54 56 54 55 Resp 20 18 18 B/P (MAP) 145/65 115/72 (86) 128/77 (94) 122/69 (86) Pulse Ox 100 O2 Delivery Room Air 06/10/21 06/10/21 06/10/21 06/10/21 18:29 18:44 18:59 23:33 Temp 98.3 98.3 Pulse 79 69 64 55 Resp 18 18 18 18 B/P (MAP) 107/61 (76) 122/77 (92) 119/64 (82) 138/81 (100) Pulse Ox 96 O2 Delivery Room Air 06/11/21 06/11/21 06/11/21 02:40 07:00 08:37 Temp 97.6 98.3 97.6 98.3 Pulse 48 49 48 Resp 18 18 B/P (MAP) 134/73 (93) 128/78 (95) 134/73 Pulse Ox 99 94 O2 Delivery Room Air Room Air Intake and Output 06/10/21 06/10/21 06/11/21 15:00 23:00 07:00 Intake Total 180 ml 1630 ml 300 ml Output Total 10 ml Balance 180 ml 1620 ml 300 ml Images Echocardiogram, 06/09 LEFT VENTRICLE The Left Ventricle is mildly dilated. There is borderline to mild concentric left ventricular hypertrophy. The systolic function is mildly impaired. The Ejection Fraction is 40-45%. There is mild global hypokinesis of the left ventricle. Transmitral Doppler flow pattern is Grade I-abnormal relaxation pattern. RIGHT VENTRICLE The right ventricle is mildly dilated. There is normal right ventricular wall thickness. The right ventricular systolic function is normal. ATRIA The left atrium size is normal. The right atrium is mildly dilated. The interatrial septum is intact with no evidence for an atrial septal defect or patent foramen ovale as noted on 2-D or Doppler imaging. AORTIC VALVE The aortic valve is normal in structure and function. Doppler and Color Flow revealed trace aortic regurgitation. There is no significant aortic valvular stenosis. Calculated aortic valve area is 2.94 cm2 with maximum pressure gradient of 7 mmHg and mean pressure gradient of 5 mmHg. MITRAL VALVE The mitral valve is normal in structure and function. There is no evidence of mitral valve prolapse. There is no mitral valve stenosis. Doppler and Color-flow revealed trace mitral regurgitation. TRICUSPID VALVE The tricuspid valve is normal in structure and function. Doppler and Color Flow revealed trace tricuspid regurgitation. There is no tricuspid valve stenosis. PULMONIC VALVE The pulmonic valve is not well visualized. Doppler and Color Flow revealed trace pulmonic valvular regurgitation. GREAT VESSELS The aortic root is mildly enlarged measuring 4.10 cm. The ascending aorta is borderline enlarged measuring 3.52 cm. The IVC is normal in size and collapses >50% with inspiration. PERICARDIAL EFFUSION There is no evidence of significant pericardial effusion. Critical Notification Critical Value: No <Conclusion> The Left Ventricle is mildly dilated. The systolic function is mildly impaired. The Ejection Fraction is 40-45%. There is mild global hypokinesis of the left ventricle. There is borderline to mild concentric left ventricular hypertrophy. Doppler and Color Flow revealed trace aortic regurgitation. There is no significant aortic valvular stenosis. Doppler and Color-flow revealed trace mitral regurgitation. Doppler and Color Flow revealed trace tricuspid regurgitation. The aortic root is mildly enlarged measuring 4.10 cm. Justicifation of Admission Dx: Justifications for Admission: Justification of Admission Dx: Yes Stroke - Ischemic: Stroke-Ischemic LINN CHAVEZ MD Jun 11, 2021 09:19
[2021-06-11] MEDS ORDERED: LIDO700A21 TD (10:59)
[2021-06-11] MEDS ORDERED: ACET325T21 PO (10:59)
[2021-06-11 11:00] VITALS: BP 117/71
--- NOTE | 2021-06-11 11:01 | SNU/HH DC ---
DISCHARGE ORDERS DISCHARGE INFORMATION: DISCHARGE DATE: Jun 11, 2021 FINAL DIAGNOSIS cervical stenosis with myelopathy right hemiplegia prior CVA chroinc pain, opioid dependent, on methadone replacement therapy weakness CONDITION ON DISCHARGE: Stable CODE STATUS: Code Status: Full POST DISCHARGE ORDERS: ACTIVITY ORDERS: No restrictions, Activity as tolerated WEIGHT BEARING STATUS: No restrictions, As tolerated DIET AFTER DISCHARGE: Cardiac FOLLOW-UP: PHYSICIAN FOLLOW-UP: Dr. Akers < 2 week TREATMENT/EQUIPMENT ORDERS: ADAPTIVE EQUIPMENT NEEDED: Front wheeled walker Physical Therapy For: Evalulation/Treatment Occupational Therapy For: Evaluation/Treatment DISCHARGE MEDICATIONS: Home Meds Active Scripts Acetaminophen (ACETAMINOPHEN) 325 Mg Tablet, 650 MG PO PRN Q6HRS PRN for MILD PAIN / TEMP > 100.3'F, #30 TAB Prov:CELSO DOMINGUEZ MD 06/11/21 Lidocaine (Lidocaine PATCH ) 1 Each Adh..patch, 1 PATCH TD DAILY for neck pain, #7 PATCH Prov:CELSO DOMINGUEZ MD 06/11/21 Reported Medications Sennosides/Docusate Sodium (Colace 2-in-1 Tablet) 1 Each Tablet, 1 EACH PO BID for constipation, TAB 06/06/21 Lisinopril (LISINOPRIL) 20 Mg Tablet, 1 TAB PO DAILY for hypertension 06/06/21 Pregabalin (Pregabalin) 100 Mg Capsule, 1 CAP PO BID for neuropathy 06/06/21 Triamcinolone Acetonide (TRIAMCINOLONE ACETONIDE 0.1% OINT) 15 Gm Oint...g., 1 ALICIA TP BID for yeast 06/06/21 Simvastatin (SIMVASTATIN) 40 Mg Tablet, 40 MG PO HS 08/14/13 Methadone Hcl (METHADONE HCL) 40 Mg Tablet.carlita, 165 MG PO DAILY 08/14/13 CELSO DOMINGUEZ MD Jun 11, 2021 11:00
--- NOTE | 2021-06-11 11:04 | PDOC3 ---
Discharge Summary Visit Information Date of Admission: Jun 06, 2021 Date of Discharge: Jun 11, 2021 Final Diagnosis cervical stenosis with myelopathy right hemiplegia prior CVA chroinc pain, opioid dependent, on methadone replacement therapy weakness Brief Hospital Course Allergies Allergies Coded Allergies Type Severity Reaction Last Updated Verified No Known Drug Allergies 06/10/21 No Vital Signs Vital Signs Date Time Temp Pulse Resp B/P (MAP) Pulse Ox O2 Delivery O2 Flow Rate FiO2 06/11/21 08:37 48 134/73 06/11/21 07:00 98.3 18 94 Room Air 98.3 06/10/21 16:24 10 Lab Results Laboratory Tests Test 06/11/21 05:00 White Blood Count 8.0 x10^3/uL (4.0-11.0) Red Blood Count 4.04 x10^6/uL (4.30-5.70) Hemoglobin 11.9 g/dL (13.0-17.5) Hematocrit 35.7 % (39.0-53.0) Mean Corpuscular Volume 88 fL (79-100) Mean Corpuscular Hemoglobin 30 pg (25-35) Mean Corpuscular Hemoglobin Concent 33 g/dL (31-37) Red Cell Distribution Width 15.5 % (11.5-14.5) Platelet Count 178 x10^3/uL (140-400) Neutrophils (%) (Auto) 80 % (31-73) Lymphocytes (%) (Auto) 10 % (24-48) Monocytes (%) (Auto) 9 % (0-9) Eosinophils (%) (Auto) 1 % (0-3) Basophils (%) (Auto) 0 % (0-3) Neutrophils # (Auto) 6.4 x10^3/uL (1.8-7.7) Lymphocytes # (Auto) 0.8 x10^3/uL (1.0-4.8) Monocytes # (Auto) 0.7 x10^3/uL (0.0-1.1) Eosinophils # (Auto) 0.1 x10^3/uL (0.0-0.7) Basophils # (Auto) 0.0 x10^3/uL (0.0-0.2) Sodium Level 138 mmol/L (136-145) Potassium Level 4.1 mmol/L (3.5-5.1) Chloride Level 102 mmol/L (98-107) Carbon Dioxide Level 29 mmol/L (21-32) Anion Gap 7 (6-14) Blood Urea Nitrogen 14 mg/dL (8-26) Creatinine 0.8 mg/dL (0.7-1.3) Estimated GFR (Cockcroft-Gault) 95.0 BUN/Creatinine Ratio 18 (6-20) Glucose Level 112 mg/dL (70-99) Calcium Level 8.3 mg/dL (8.5-10.1) Total Bilirubin 0.3 mg/dL (0.2-1.0) Aspartate Amino Transf (AST/SGOT) 18 U/L (15-37) Alanine Aminotransferase (ALT/SGPT) 26 U/L (16-63) Alkaline Phosphatase 69 U/L (46-116) Total Protein 6.1 g/dL (6.4-8.2) Albumin 2.9 g/dL (3.4-5.0) Albumin/Globulin Ratio 0.9 (1.0-1.7) Laboratory Tests Test 06/11/21 05:00 White Blood Count 8.0 x10^3/uL (4.0-11.0) Red Blood Count 4.04 x10^6/uL (4.30-5.70) Hemoglobin 11.9 g/dL (13.0-17.5) Hematocrit 35.7 % (39.0-53.0) Mean Corpuscular Volume 88 fL (79-100) Mean Corpuscular Hemoglobin 30 pg (25-35) Mean Corpuscular Hemoglobin Concent 33 g/dL (31-37) Red Cell Distribution Width 15.5 % (11.5-14.5) Platelet Count 178 x10^3/uL (140-400) Neutrophils (%) (Auto) 80 % (31-73) Lymphocytes (%) (Auto) 10 % (24-48) Monocytes (%) (Auto) 9 % (0-9) Eosinophils (%) (Auto) 1 % (0-3) Basophils (%) (Auto) 0 % (0-3) Neutrophils # (Auto) 6.4 x10^3/uL (1.8-7.7) Lymphocytes # (Auto) 0.8 x10^3/uL (1.0-4.8) Monocytes # (Auto) 0.7 x10^3/uL (0.0-1.1) Eosinophils # (Auto) 0.1 x10^3/uL (0.0-0.7) Basophils # (Auto) 0.0 x10^3/uL (0.0-0.2) Sodium Level 138 mmol/L (136-145) Potassium Level 4.1 mmol/L (3.5-5.1) Chloride Level 102 mmol/L (98-107) Carbon Dioxide Level 29 mmol/L (21-32) Anion Gap 7 (6-14) Blood Urea Nitrogen 14 mg/dL (8-26) Creatinine 0.8 mg/dL (0.7-1.3) Estimated GFR (Cockcroft-Gault) 95.0 BUN/Creatinine Ratio 18 (6-20) Glucose Level 112 mg/dL (70-99) Calcium Level 8.3 mg/dL (8.5-10.1) Total Bilirubin 0.3 mg/dL (0.2-1.0) Aspartate Amino Transf (AST/SGOT) 18 U/L (15-37) Alanine Aminotransferase (ALT/SGPT) 26 U/L (16-63) Alkaline Phosphatase 69 U/L (46-116) Total Protein 6.1 g/dL (6.4-8.2) Albumin 2.9 g/dL (3.4-5.0) Albumin/Globulin Ratio 0.9 (1.0-1.7) Brief Hospital Course Mr. Velez is a 71 old male, priro CVA with resolved right sided weakneass from before, admit with new right arm and leg weakness, w/u CVA, then better history, he discusssed that weeakness was probably over weeks to months in worsening. C4 cC5 stenosis Dr. Bhardwaj consulted, neurosurg, surg done on 06/10, and str better in am of 06/11, to acute rehab hospital Discharge Information Condition at Discharge: Improved Follow Up: Weeks Disposition/Orders: D/C to Another Facility Scheduled Lidocaine (Lidocaine PATCH ) 1 Each Adh..patch, 1 PATCH TD DAILY for neck pain, #7 Prescribed by: CELSO DOMINGUEZ on 06/11/21 1052 Lisinopril (Lisinopril) 20 Mg Tablet, 1 TAB PO DAILY for hypertension, (Reported) Entered as Reported by: TI GALEANO on 06/06/211910 Last Action: Continued on 06/07/211928 by GENA POOL Methadone Hcl (Methadone Hcl) 40 Mg Tablet.carlita, 165 MG PO DAILY, (Reported) Entered as Reported by: THO REYNA on 08/14/13 1028 Last Action: Converted on 06/07/21 1031 by GENA POOL Pregabalin (Pregabalin) 100 Mg Capsule, 1 CAP PO BID for neuropathy, (Reported) Entered as Reported by: TI GALEANO on 06/06/211908 Last Action: Converted on 06/07/211928 by GENA POOL Sennosides/Docusate Sodium (Colace 2-in-1 Tablet) 1 Each Tablet, 1 EACH PO BID for constipation, (Reported) Entered as Reported by: RADHA CRENSHAW on 06/06/212231 Last Action: Continued on 06/07/211928 by GENA POOL Simvastatin (Simvastatin) 40 Mg Tablet, 40 MG PO HS, (Reported) Entered as Reported by: THO REYNA on 08/14/13 1028 Last Action: Continued on 06/07/211928 by GENA POOL Triamcinolone Acetonide (Triamcinolone Acetonide 0.1% Oint) 15 Gm Oint...g., 1 ALICIA TP BID for yeast, (Reported) Entered as Reported by: TI GALEANO on 06/06/211908 Last Action: Continued on 06/07/211928 by GENA POOL Scheduled PRN Acetaminophen (Acetaminophen) 325 Mg Tablet, 650 MG PO PRN Q6HRS PRN for MILD PAIN / TEMP > 100.3'F, #30 Prescribed by: CELSO DOMINGUEZ on 06/11/21 1059 Patient Instructions Patient Instructions > 30 min pt seen face to face coordination of care, 34min Justicifation of Admission Dx: Justifications for Admission: Justification of Admission Dx: Yes Stroke - Ischemic: Stroke-Ischemic CELSO DOMINGUEZ MD Jun 11, 2021 11:04
--- NOTE | 2021-06-11 12:19 | OP ---
DATE OF SURGERY: 06/10/2021 PREOPERATIVE DIAGNOSES: Severe cervical spinal stenosis at C4-C5 with cervical myelopathy. POSTOPERATIVE DIAGNOSES: Severe cervical spinal stenosis, C4-C5 with cervical myelopathy. OPERATION PERFORMED: Anterior cervical microdiscectomy, C4-C5; anterior cervical interbody fusion, C4-C5; anterior cervical plate, C4-C5. The operation was done with EMG monitoring, SSEP monitoring, motor evoked potentials, fluoroscopy and microscopic dissection. SURGEON: Fredo Akers M.D. RISK CONSULTANT: JARAD Hankins, assisted with the surgery. She assisted with the exposure, microdecompression and fusion, as well as the closure. OPERATIVE INDICATIONS: The patient is a pleasant 71-year-old man who has developed a slowly progressive weakness predominantly on his right side. He had a previous right stroke, but this problem was a progressive one and an evaluation by Neurology in the hospital, he was found to have severe cervical spinal stenosis at C4-C5. I recommended an anterior cervical microdiscectomy and fusion. I spoke with him about the surgery and the risks. He understood and wished to go ahead. DESCRIPTION OF PROCEDURE: Following general endotracheal anesthesia with a GlideScope and care not to flex his neck, he was intubated and positioned in a neutral position. LEONID hose and AV impulse boots were applied. The microscope was draped, fluoroscopy was draped, brought into the field and monitoring was established. Ancef 2 grams was given less than one hour prior to initiation of surgery. Using fluoroscopic guidance, an incision was made from the midline around to the right side in a skin crease. I dissected down through skin and subcutaneous tissue, I incised the platysma and then dissected around the medial aspect of the sternocleidomastoid and carotid artery sheath down the anterior cervical vertebral bodies. I gently reflected the trachea and esophagus contralaterally and placed Gate anterior cervical retractors. I brought in the microscope and the remainder of surgery done with microscope. Using microscopic techniques, I placed 14 mm pins in C4 and C5 and incised the anterior annulus with an #11 blade. I distracted the disc space. I brought in the high speed air drill, I drilled down the anterior spurring and then performed a discectomy with pituitary rongeurs as well as endplate scraper and the high speed air drill. I drilled the posterior spurring, trimmed away the annulus with 2 mm micro Kerrisons and worked laterally bilaterally and opened the ligament and I assured myself that the region was quite well decompressed. I placed a 7 mm interbody fusion cage after I obtained perfect hemostasis in disc space. The cage was packed with allograft bone and tapped this into position, and then placed an anterior plate using the [place] system. Screws were placed and locked, felt I had excellent purchase. I irrigated copiously with antibiotic solution after removing the retractor. I did Valsalva to assure myself of excellent hemostasis, irrigated and then I closed the wound in layers with absorbable suture and the skin was closed with 4-0 subcuticular stitch. I felt the surgery went very well. AMANDA DR: Irene TID: [id number] ANGEL
--- NOTE | 2021-06-11 12:31 | NUR ---
SS following up with discharge planning. SS reviewed pt chart and discussed with pt RN. Pt is currently on room air. COVID19 negative. PT/OT recommended acute rehabilitation. Pt accepted at [facility], ; fax [phone]. Insurance authorization received. Discharge orders received and phoned and faxed to [facility]. Pt will discharge today and go to [facility]. Currently awaiting transportation time from [facility]. Pt and pt's RN notified. SS will continue to follow for discharge planning. Addendum: 06/11/21 at 1332 by ANURAG HALE SS Pt will discharge today and go to [facility] at 1500. [facility] to provide transportation. Pt and pt's RN notified. Packet placed on chart.
--- NOTE | 2021-06-11 12:57 | PDOC ---
PROGRESS NOTES Date of Service DATE: 06/11/21 TIME: 12:54 Subjective Subjective POD #1 S/P ACDF C4-5 up in chair eating lunch feels much better, right upper and lower extremity much stronger, able to feed himself Objective Objective Vital Signs Date Time Temp Pulse Resp B/P (MAP) Pulse Ox O2 Delivery O2 Flow Rate FiO2 06/11/21 11:00 98.6 62 18 117/71 (86) 95 Room Air 98.6 06/10/21 16:24 10 Intake and Output 06/11/21 07:00 Intake Total 2110 ml Output Total 10 ml Balance 2100 ml Intake Oral 860 ml IV Total 1250 ml Estimated Blood Loss 10 ml # Voids 1 Physical Exam General: Alert, Oriented X3, Cooperative, No acute distress, Other (soft cervical collar on, voice clear) MUSCULOSKELETAL: Other (CHILDRESS) Neuro: Other (right upper and lower extremity stronger) Skin: Other (dressing C,D,I) Plan Plan of Care ok to transfer to rehab from my standpoint will need follow up in 2 weeks Comment Review of Relevant I have reviewed the following items eryn (where applicable) has been applied. Labs Laboratory Tests Test 06/11/21 05:00 White Blood Count 8.0 x10^3/uL (4.0-11.0) Red Blood Count 4.04 x10^6/uL (4.30-5.70) Hemoglobin 11.9 g/dL (13.0-17.5) Hematocrit 35.7 % (39.0-53.0) Mean Corpuscular Volume 88 fL (79-100) Mean Corpuscular Hemoglobin 30 pg (25-35) Mean Corpuscular Hemoglobin Concent 33 g/dL (31-37) Red Cell Distribution Width 15.5 % (11.5-14.5) Platelet Count 178 x10^3/uL (140-400) Neutrophils (%) (Auto) 80 % (31-73) Lymphocytes (%) (Auto) 10 % (24-48) Monocytes (%) (Auto) 9 % (0-9) Eosinophils (%) (Auto) 1 % (0-3) Basophils (%) (Auto) 0 % (0-3) Neutrophils # (Auto) 6.4 x10^3/uL (1.8-7.7) Lymphocytes # (Auto) 0.8 x10^3/uL (1.0-4.8) Monocytes # (Auto) 0.7 x10^3/uL (0.0-1.1) Eosinophils # (Auto) 0.1 x10^3/uL (0.0-0.7) Basophils # (Auto) 0.0 x10^3/uL (0.0-0.2) Sodium Level 138 mmol/L (136-145) Potassium Level 4.1 mmol/L (3.5-5.1) Chloride Level 102 mmol/L (98-107) Carbon Dioxide Level 29 mmol/L (21-32) Anion Gap 7 (6-14) Blood Urea Nitrogen 14 mg/dL (8-26) Creatinine 0.8 mg/dL (0.7-1.3) Estimated GFR (Cockcroft-Gault) 95.0 BUN/Creatinine Ratio 18 (6-20) Glucose Level 112 mg/dL (70-99) Calcium Level 8.3 mg/dL (8.5-10.1) Total Bilirubin 0.3 mg/dL (0.2-1.0) Aspartate Amino Transf (AST/SGOT) 18 U/L (15-37) Alanine Aminotransferase (ALT/SGPT) 26 U/L (16-63) Alkaline Phosphatase 69 U/L (46-116) Total Protein 6.1 g/dL (6.4-8.2) Albumin 2.9 g/dL (3.4-5.0) Albumin/Globulin Ratio 0.9 (1.0-1.7) Laboratory Tests Test 06/11/21 05:00 White Blood Count 8.0 x10^3/uL (4.0-11.0) Red Blood Count 4.04 x10^6/uL (4.30-5.70) Hemoglobin 11.9 g/dL (13.0-17.5) Hematocrit 35.7 % (39.0-53.0) Mean Corpuscular Volume 88 fL (79-100) Mean Corpuscular Hemoglobin 30 pg (25-35) Mean Corpuscular Hemoglobin Concent 33 g/dL (31-37) Red Cell Distribution Width 15.5 % (11.5-14.5) Platelet Count 178 x10^3/uL (140-400) Neutrophils (%) (Auto) 80 % (31-73) Lymphocytes (%) (Auto) 10 % (24-48) Monocytes (%) (Auto) 9 % (0-9) Eosinophils (%) (Auto) 1 % (0-3) Basophils (%) (Auto) 0 % (0-3) Neutrophils # (Auto) 6.4 x10^3/uL (1.8-7.7) Lymphocytes # (Auto) 0.8 x10^3/uL (1.0-4.8) Monocytes # (Auto) 0.7 x10^3/uL (0.0-1.1) Eosinophils # (Auto) 0.1 x10^3/uL (0.0-0.7) Basophils # (Auto) 0.0 x10^3/uL (0.0-0.2) Sodium Level 138 mmol/L (136-145) Potassium Level 4.1 mmol/L (3.5-5.1) Chloride Level 102 mmol/L (98-107) Carbon Dioxide Level 29 mmol/L (21-32) Anion Gap 7 (6-14) Blood Urea Nitrogen 14 mg/dL (8-26) Creatinine 0.8 mg/dL (0.7-1.3) Estimated GFR (Cockcroft-Gault) 95.0 BUN/Creatinine Ratio 18 (6-20) Glucose Level 112 mg/dL (70-99) Calcium Level 8.3 mg/dL (8.5-10.1) Total Bilirubin 0.3 mg/dL (0.2-1.0) Aspartate Amino Transf (AST/SGOT) 18 U/L (15-37) Alanine Aminotransferase (ALT/SGPT) 26 U/L (16-63) Alkaline Phosphatase 69 U/L (46-116) Total Protein 6.1 g/dL (6.4-8.2) Albumin 2.9 g/dL (3.4-5.0) Albumin/Globulin Ratio 0.9 (1.0-1.7) Medications Current Medications Iohexol (Omnipaque 300 Mg/ml) 75 ml 1X ONCE IV Last administered on 06/06/21at 12:44; Start 06/06/21 at 12:30; Stop 06/06/21 at 12:31; Status DC Info (CONTRAST GIVEN -- Rx MONITORING) 1 each PRN DAILY PRN MC SEE COMMENTS; Start 06/06/21 at 12:30; Stop 06/08/21 at 12:29; Status DC Atorvastatin Calcium (Lipitor) 80 mg QHS PO ; Start 06/06/21 at 21:00; Stop 06/07/21 at 09:07; Status DC Acetaminophen (Tylenol) 650 mg PRN Q6HRS PRN PO MILD PAIN / TEMP > 100.3'F Last administered on 06/08/21at 21:07; Start 06/06/21 at 14:15 Aspirin (Ecotrin) 325 mg DAILYWBKFT PO Last administered on 06/11/21at 08:36; Start 06/07/21 at 08:00 Aspirin (Aspirin Rectal Supp) 300 mg PRN DAILY PRN MS IF UNABLE TO TAKE PO; Start 06/06/21 at 14:15 Ondansetron HCl (Zofran) 4 mg PRN Q8HRS PRN IVP NAUSEA/VOMITING Last administered on 06/07/21at 06:16; Start 06/06/21 at 15:00; Stop 06/07/21 at 14:59; Status DC Morphine Sulfate (Morphine Sulfate) 2 mg PRN Q2HR PRN IVP PAIN Last a dministered on 06/07/21at 06:17; Start 06/06/21 at 15:00; Stop 06/07/21 at 14:59; Status DC Acetaminophen (Tylenol) 650 mg PRN Q4HRS PRN PO FEVER > 100.3'F; Start 06/06/21 at 15:00; Stop 06/07/21 at 14:59; Status Cancel Methylnaltrexone Quitman (Relistor) 12 mg 1X ONCE SQ Last administered on 06/06/21at 22:12; Start 06/06/21 at 19:15; Stop 06/06/21 at 19:16; Status DC Nystatin (Nystop) 1 divya BID TP Last administered on 06/11/21at 08:39; Start 06/06/21 at 21:00 Atorvastatin Calcium (Lipitor) 10 mg QHS PO ; Start 06/07/21 at 21:00; Stop 06/07/21 at 19:33; Status DC Non-Formulary Medication (Methadone Hcl ) 165 mg DAILY PO Last administered on 06/08/21at 09:00; Start 06/07/21 at 11:00; Stop 06/08/21 at 10:59; Status DC Ketorolac Tromethamine (Toradol 30mg Vial) 30 mg 1X ONCE IVP Last administered on 06/07/21 17:36; Start 06/07/21 at 17:30; Stop 06/07/21 at 17:31; Status DC Lidocaine (Lidoderm) 1 patch DAILY TD Last administered on 06/11/21 08:38; Start 06/07/21 at 17:30 Miscellaneous (Lidoderm Patch Removal) 1 ea QHS MC Last administered on 06/10/21at 21:00; Start 06/07/21 at 21:00 Lisinopril (Prinivil) 20 mg DAILY PO Last administered on 06/11/21 08:37; Start 06/08/21 at 09:00 Senna/Docusate Sodium (Senna Plus) 1 tab BID PO Last administered on 06/11/21 08:36; Start 06/07/21 at 21:00 Simvastatin (Zocor) 40 mg HS PO Last administered on 06/10/21at 21:00; Start 06/07/21 at 21:00 Triamcinolone Acetonide (Kenalog 0.1%) 1 divya BID TP Last administered on 06/11/21 08:38; Start 06/07/21 at 21:00 Pregabalin (Lyrica) 100 mg BID PO Last administered on 06/11/21at 09:05; Start 06/07/21 at 21:00 Potassium Chloride/Dextrose/ Sod Cl 1,000 ml @ 100 mls/hr Q10H IV Last administered on 06/10/21at 05:11; Start 06/08/21 at 08:00; Stop 06/11/21 at 09:05; Status DC Methadone HCl (Dolophine) 165 mg DAILY PO ; Start 06/08/21 at 09:00; Status Cancel Methadone HCl (Dolophine) 165 mg DAILY PO ; Start 06/09/21 at 09:00; Status Cancel Non-Formulary Medication (Methadone Hcl ) 165 mg DAILY PO Last administered on 06/11/21 08:36; Start 06/09/21 at 09:00 Cefazolin Sodium 1 gm/Sodium Chloride 1,000 ml @ 1,000 mls/hr 1X ONCE IRR Last administered on 06/10/21at 14:04; Start 06/10/21 at 06:00; Stop 06/10/21 at 06:59; Status DC Gelatin (Gelfoam Size 100) 1 each STK-MED ONCE .ROUTE Last administered on 06/10/21at 14:04; Start 06/10/21 at 07:41; Stop 06/10/21 at 07:42; Status DC Bupivacaine HCl/ Epinephrine Bitart (Sensorcain-Epi 0.5% Kit) 30 ml STK-MED ONCE .ROUTE Last administered on 06/10/21at 14:04; Start 06/10/21 at 07:41; Stop 06/10/21 at 07:42; Status DC Thrombin 20,000 unit STK-MED ONCE TP Last administered on 06/10/21at 14:04; Start 06/10/21 at 07:41; Stop 06/10/21 at 07:42; Status DC Cefazolin Sodium/ Dextrose 50 ml @ As Directed STK-MED ONCE IV ; Start 06/10/21 at 09:23; Stop 06/10/21 at 09:23; Status DC Propofol (Diprivan) 200 mg STK-MED ONCE IV ; Start 06/10/21 at 09:39; Stop 06/10/21 at 09:39; Status DC Lidocaine HCl (Lidocaine Pf 2% Vial) 5 ml STK-MED ONCE .ROUTE ; Start 06/10/21 at 09:39; Stop 06/10/21 at 09:39; Status DC Dexamethasone Sodium Phosphate (Decadron) 4 mg STK-MED ONCE .ROUTE ; Start 06/10/21 at 09:39; Stop 06/10/21 at 09:39; Status DC Ondansetron HCl (Zofran) 4 mg STK-MED ONCE .ROUTE ; Start 06/10/21 at 09:39; Stop 06/10/21 at 09:39; Status DC Phenylephrine HCl (PHENYLEPHRINE in 0.9% NACL PF) 1 mg STK-MED ONCE IV ; Start 06/10/21 at 09:39; Stop 06/10/21 at 09:40; Status DC Succinylcholine Chloride (Anectine) 200 mg STK-MED ONCE .ROUTE ; Start 06/10/21 at 09:40; Stop 06/10/21 at 09:40; Status DC Rocuronium Quitman (Zemuron) 50 mg STK-MED ONCE .ROUTE ; Start 06/10/21 at 09:41; Stop 06/10/21 at 09:41; Status DC Propofol 50 ml @ As Directed STK-MED ONCE IV ; Start 06/10/21 at 09:42; Stop 06/10/21 at 09:43; Status DC Remifentanil HCl (Ultiva) 2 mg STK-MED ONCE IV ; Start 06/10/21 at 09:46; Stop 06/10/21 at 09:46; Status DC Cefazolin Sodium/ Dextrose 50 ml @ 100 mls/hr 1X PREOP PRN IV PRIOR TO PROCEDURE Last administered on 06/10/21at 13:35; Start 06/11/21 at 06:00; Stop 06/11/21 at 18:00 Phenylephrine HCl (Jovon-Synephrine Inj) 10 mg STK-MED ONCE .ROUTE ; Start 06/10/21 at 09:56; Stop 06/10/21 at 11:57; Status DC Fentanyl Citrate (Fentanyl 2ml Vial) 100 mcg STK-MED ONCE .ROUTE ; Start 06/10/21 at 13:15; Stop 06/10/21 at 13:16; Status DC Glycopyrrolate (Robinul) 1 mg STK-MED ONCE .ROUTE ; Start 06/10/21 at 13:23; Stop 06/10/21 at 13:24; Status DC Hydromorphone HCl (Dilaudid) 2 mg STK-MED ONCE .ROUTE ; Start 06/10/21 at 13:41; Stop 06/10/21 at 13:41; Status DC Sevoflurane (Ultane) 90 ml STK-MED ONCE IH ; Start 06/10/21 at 13:42; Stop 06/10/21 at 13:42; Status DC Atropine Sulfate (ATROPINE 1mg SYRINGE) 1 mg STK-MED ONCE .ROUTE ; Start 06/10/21 at 13:51; Stop 06/10/21 at 13:52; Status DC Neostigmine Quitman (Neostigmine Methylsulfate) 5 mg STK-MED ONCE .ROUTE ; Start 06/10/21 at 13:52; Stop 06/10/21 at 13:52; Status DC Propofol 50 ml @ As Directed STK-MED ONCE IV ; Start 06/10/21 at 14:14; Stop 06/10/21 at 14:14; Status DC Sevoflurane (Ultane) 90 ml STK-MED ONCE IH ; Start 06/10/21 at 14:35; Stop 06/10/21 at 14:35; Status DC Propofol 50 ml @ As Directed STK-MED ONCE IV ; Start 06/10/21 at 15:21; Stop 06/10/21 at 15:21; Status DC Fentanyl Citrate (Fentanyl 2ml Vial) 25 mcg PRN Q5MIN PRN IVP MILD PAIN 1-3; Start 06/10/21 at 15:45; Stop 06/11/21 at 15:44 Fentanyl Citrate (Fentanyl 2ml Vial) 50 mcg PRN Q5MIN PRN IVP MODERATE PAIN 4- 6; Start 06/10/21 at 15:45; Stop 06/11/21 at 15:44 Morphine Sulfate (Morphine Sulfate) 1 mg PRN Q10MIN PRN IVP SEVERE PAIN 7-10; Start 06/10/21 at 15:45; Stop 06/11/21 at 15:44 Ringer's Solution 1,000 ml @ 30 mls/hr Q24H IV Last administered on 06/10/21at 09:45; Start 06/10/21 at 15:45; Stop 06/11/21 at 03:44; Status DC Hydromorphone HCl (Dilaudid) 0.5 mg PRN Q10MIN PRN IVP SEVERE PAIN 7-10, 2nd CHOICE; Start 06/10/21 at 15:45; Stop 06/11/21 at 15:44 Prochlorperazine Edisylate (Compazine) 5 mg PACU PRN PRN IVP NAUSEA, MRX1; Start 06/10/21 at 15:45; Stop 06/11/21 at 15:44 Acetaminophen (Tylenol) 650 mg PRN Q6HRS PRN PO MILD PAIN / TEMP > 100.3'F Last administered on 06/10/21at 22:19; Start 06/10/21 at 16:15 Al Hydroxide/Mg Hydroxide (Mylanta Plus Xs) 30 ml PRN Q3HRS PRN PO HEARTBURN / GAS; Start 06/10/21 at 16:15 Calcium Carbonate/ Glycine (Tums) 500 mg PRN Q3HRS PRN PO INDIGESTION; Start 06/10/21 at 16:15 Diphenhydramine HCl (Benadryl) 25 mg PRN Q6HRS PRN PO ITCHING; Start 06/10/21 at 16:15 Naloxone HCl (Narcan) 0.1 mg PRN Q2MIN PRN IV SEE COMMENTS; Start 06/10/21 at 16:15 Sodium Chloride (Normal Saline Flush) 3 ml QSHIFT PRN IV AFTER MEDS AND BLOOD DRAWS; Start 06/10/21 at 16:15 Potassium Chloride/Dextrose/ Sod Cl 1,000 ml @ 75 mls/hr [id number] IV Last administered on 06/11/21at 05:35; Start 06/10/21 at 16:15 Docusate Sodium (Colace) 100 mg BID PO Last administered on 06/11/21at 08:41; Start 06/10/21 at 21:00 Magnesium Hydroxide (Milk Of Magnesia) 2,400 mg PRN Q12HR PRN PO CONSTIPATION; Start 06/10/21 at 16:15 Active Scripts Active Acetaminophen 325 Mg Tablet 650 Mg PO PRN Q6HRS PRN Lidocaine PATCH (Lidocaine) 1 Each Adh..patch 1 Patch TD DAILY Reported Colace 2-in-1 Tablet (Sennosides/Docusate Sodium) 1 Each Tablet 1 Each PO BID Lisinopril 20 Mg Tablet 1 Tab PO DAILY Pregabalin 100 Mg Capsule 1 Cap PO BID Triamcinolone Acetonide 0.1% Oint (Triamcinolone Acetonide) 15 Gm Oint...g. 1 Divya TP BID Simvastatin 40 Mg Tablet 40 Mg PO HS Methadone Hcl 40 Mg Tablet.carlita 165 Mg PO DAILY Vitals/I & O Vital Sign - Last 24 Hours 06/10/21 06/10/21 06/10/21 06/10/21 15:54 15:54 16:09 16:24 Temp 98.0 98.0 Pulse 47 46 46 Resp 20 22 20 B/P (MAP) 146/62 132/74 132/74 Pulse Ox 99 100 100 O2 Delivery Mask Simple Mask Room Air Simple Mask O2 Flow Rate 10 10 10 06/10/21 06/10/21 06/10/21 06/10/21 16:39 16:54 17:20 17:20 Temp 98.0 98.0 98.0 98.0 Pulse 44 45 54 Resp 20 18 20 B/P (MAP) 142/76 146/78 145/65 Pulse Ox 100 100 100 O2 Delivery Room Air Room Air Room Air Room Air 06/10/21 06/10/21 06/10/21 06/10/21 17:44 17:59 18:14 18:29 Pulse 56 54 55 79 Resp 18 18 18 B/P (MAP) 115/72 (86) 128/77 (94) 122/69 (86) 107/61 (76) 06/10/21 06/10/21 06/10/21 06/10/21 18:44 18:59 20:00 20:05 Pulse 69 64 Resp 18 18 B/P (MAP) 122/77 (92) 119/64 (82) O2 Delivery Room Air Room Air 06/10/21 06/10/21 06/11/21 06/11/21 20:05 23:33 02:40 07:00 Temp 98.3 97.6 98.3 98.3 97.6 98.3 Pulse 55 48 49 Resp 18 18 18 B/P (MAP) 138/81 (100) 134/73 (93) 128/78 (95) Pulse Ox 96 99 94 O2 Delivery Room Air Room Air Room Air Room Air 06/11/21 06/11/21 08:37 11:00 Temp 98.6 98.6 Pulse 48 62 Resp 18 B/P (MAP) 134/73 117/71 (86) Pulse Ox 95 O2 Delivery Room Air Intake and Output 06/10/21 06/10/21 06/11/21 15:00 23:00 07:00 Intake Total 180 ml 1630 ml 300 ml Output Total 10 ml Balance 180 ml 1620 ml 300 ml Justifications for Admission TIA Indications Hemodynamically unstable?: No Persistent neurologic signs?: Yes Cardiomyopathy/Valvular diseas: No Severe hypertension?: No Cardiac arrhythmia?: No Other Justification MICHEAL CHILEL MD Jun 11, 2021 12:57
--- NOTE | 2021-06-11 15:18 | NUR ---
during assessment pt has spot on top of his head where he had dried blood. wiped away blood but could not find where it was coming from. not currently bleeding
--- NOTE | 2021-06-11 15:19 | NUR ---
pt discharged to [facility]. Left by wheelchair
--- NOTE | 2021-06-15 13:12 | PATHOLOGY ---
[facility] Accession Number: [id number] . 01 Material submitted: . vertebral column - CERVICAL DISC . 01 Clinical history: . SEVERE CERVICAL STENOSIS ACDF C4-5 . 02 Diagnosis: Bone and soft tissue "C4-5", excision: - Fragments of reactive hyaline cartilage. - Fragments of trabecular bone with trilineage hematopoiesis and focal lymphoid aggregates. - Negative for malignancy. (BUTCHK:zulema; 06/14/2021) MBR 06/15/2021 1203 Local . 02 Electronically signed: . Cortez Norton MD, Pathologist NPI- [id number] . 01 Gross description: . Received in formalin labeled "Brown, Ignacio, cervical disc" is a 3.1 x 2.5 x 0.5 cm aggregate of hinson-white friable soft tissue and hinson-brown bony tissue fragments. The specimen is entirely submitted in A1 following decalcification. ([facility] [place]; 06/12/2021) [facility] 06/12/2021 1135 Local . 02 Pathologist provided ICD-10: M48.02 . 02 CPT . 425329, [id number] Specimen Comment: A courtesy copy of this report has been sent to [phone] Specimen Comment: [id number], Specimen Comment: Report sent to , DR JIMÉNEZ / DR CUEVAS Specimen Comment: A duplicate report has been generated due to demographic updates. Performed at: 01 [facility] [address], [place] [id number] MD Khanh De La Torre MD Phone: [phone] Performed at: [address] [id number] MD Iraj Daniel MD Phone: [phone]
== END 2021-06-11 14:50 | DRG 472 ==
LOC: ER 11:58 → 6 SOUTH 16:23
PROVIDERS: ADMIT Internal Medicine; ATTEND Internal Medicine
PROC: 0RG10A0 Fusion of Cervical Vertebral Joint with Interbody Fusion Device, Anterior Approach, Anterior Column, Open Approach (ICD-10-PCS; principal; 2021-06-11)
PROC: 0RB30ZZ Excision of Cervical Vertebral Disc, Open Approach (ICD-10-PCS; 2021-06-11)
PROC: 4A11X4G Monitoring of Peripheral Nervous Electrical Activity, Intraoperative, External Approach (ICD-10-PCS; 2021-06-11)
DX: M48.02 Spinal stenosis, cervical region (principal); M47.12 Other spondylosis with myelopathy, cervical region; I69.351 Hemiplegia and hemiparesis following cerebral infarction affecting right dominant side; F11.20 Opioid dependence, uncomplicated; E78.00 Pure hypercholesterolemia, unspecified; E78.5 Hyperlipidemia, unspecified; I10 Essential (primary) hypertension; J44.9 Chronic obstructive pulmonary disease, unspecified; K59.00 Constipation, unspecified; Z66 Do not resuscitate; Z83.3 Family history of diabetes mellitus; Z87.891 Personal history of nicotine dependence; Z20.822 Contact with and (suspected) exposure to COVID-19
CPT/HCPCS: 36415; 70450; 70496; 70498; 70551; 72141; 76000; 80048; 80053; 80061; 82962; 83036; 84484; 85025; 85610; 85730; 87426; 88304; 88311; 93005; 93306; A4213; A4222; A4364; A4452; A4556; A4930; A6254; A6258; C1713; C1821; J0330; J0461; J0690; J1100; J1170; J1885; J2212; J2270; J2370; J2405; J2704; J2710; J3010; J3480; J3490; J7030; J7120; Q9967; U0003; U0005; 92610-GN; 97116-GP; 97535-GO; 99285-25; G0378

== ENCOUNTER → 2021-09-09 | Outpatient (CLI) | payer MEDICARE ==
[~2021-09-09] MED LIST changes: +ACET325T21 PO; +LIDO700A21 TD; +LISI20TA18 PO; +SENN-121 PO; +TRIA15OI TP; +[UNRECOGNIZED DRUG - CODE] PO
--- NOTE | 2021-09-09 15:25 | KCIC ---
EXAM: Cervical spine, 3 views. HISTORY: Fusion. COMPARISON: None. FINDINGS: 3 views of the cervical spine are obtained. There is instrumented intraspinal fusion and in terbody fusion at C4-C5. There is degenerative endplate remodeling with disc space narrowing at C4-C7 . There is multilevel facet arthropathy. IMPRESSION: 1. Instrumented fusion at C4-C5. 2. Multilevel degenerative change. 3. No acute osseous finding. Electronically signed by: Sultana Ventura MD (09/09/2021 3:23 PM) [id number]
--- NOTE | 2021-09-09 15:35 | KCIC ---
EXAM: Cervical spine MRI without contrast. HISTORY: Stenosis. TECHNIQUE: Multiplanar, multisequence magnetic resonance imaging of the cervical spine was performed without contrast. COMPARISON: 06/07/2021 FINDINGS: There is instrumented anterior spinal fusion and interbody fusion at C4-C5. There is 2 mm a nterolisthesis at this level. There is multilevel endplate remodeling, primarily at C4-C7. There are multiple endplate Schmorl's nodes. There is chronic mild decreased vertebral body height at C6 and C7 . There is no acute fracture. There is no suspicious osseous lesion. There is a suspected small cyst or erosion the base of the dens. There is deformation of the spinal cord at multiple levels due to significant central canal stenosis. There may be a component of myelomalacia within the spinal cord at C4-C5. At C2-C3, there is a left posterior lateral disc osteophyte complex superimposed on endplate remodeli ng. There is mild right and severe left facet arthropathy. There is severe left foraminal stenosis. T here is mild central canal stenosis measuring 8.2 mm in anterior posterior dimension. At C3-C4, there is a left posterior lateral disc osteophyte complex superimposed on a disc bulge and endplate osteophytosis. There is moderate right and severe left facet arthropathy. There is bilateral uncovertebral arthropathy. There is moderate right and severe left foraminal stenosis. There is mode rate to severe central canal stenosis measuring 6.3 mm in anterior posterior dimension. At C4-C5, there is a right posterior lateral disc protrusion and osteophyte complex superimposed on a disc bulge and endplate osteophytosis. There is moderate bilateral facet arthropathy. There is bilat eral uncovertebral arthropathy. There is severe left greater than right foraminal stenosis. There is severe central canal cyst measuring 5.7 mm in anterior posterior dimension. At C5-C6, there are right and left posterior lateral disc osteophyte complexes superimposed on a disc bulge and endplate osteophytosis. There is mild bilateral facet arthropathy. There is bilateral unco vertebral arthropathy. There is severe right greater than left foraminal stenosis. There is mild to m oderate central canal stenosis measuring 7.7 mm anterior posterior dimension. At C7-T1, there is a disc bulge and endplate osteophytosis. There is mild right greater than left fac et arthropathy. There is bilateral uncovertebral arthropathy. There is moderate bilateral foraminal s tenosis. There is moderate central canal stenosis measuring 6.8 mm in anterior posterior dimension. IMPRESSION: 1. Interval instrumented anterior spinal fusion and interbody fusion at C4-C5. There has been slight interval decrease in severe central canal stenosis and deformation of the spinal cord at this level. 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 2. Multilevel degenerative change throughout the remainder the cervical spine, described in detail ab ove. This is not significantly changed compared to the prior study, resulting in significant foramina l and central canal stenosis at the aforementioned levels. Electronically signed by: Sultana Ventura MD (09/09/2021 3:33 PM) [id number]
== END ==
LOC: KCIC MRI 13:46
PROVIDERS: ATTEND Neurological Surgery
DX: M47.812 Spondylosis without myelopathy or radiculopathy, cervical region (principal); M50.31 Other cervical disc degeneration, high cervical region; M48.8X3 Other specified spondylopathies, cervicothoracic region; M48.03 Spinal stenosis, cervicothoracic region; M25.78 Osteophyte, vertebrae; Z98.1 Arthrodesis status
CPT/HCPCS: 72040; 72141

== ENCOUNTER → 2021-11-02 | Outpatient (CLI) | payer MEDICARE ==
[~2021-11-02] MED LIST changes: +DOCU-109 PO; +HYDR-2761 PO; +METH-562 PO; +METH-572 PO; +TAMS0.4C97 PO
[2021-11-02 15:15] LABS: BASO % 0 % (0-3); EOS # 0.2 x10^3/uL (0.0-0.7); EOS % 4 % (0-3); HEMATOCRIT 35.7 % (39.0-53.0); HEMOGLOBIN 11.7 g/dL (13.0-17.5); LYMPH # 0.6 x10^3/uL (1.0-4.8); LYMPH % 12 % (24-48); MEAN CORPUSCULAR HEMOGLOBIN 29 pg (25-35); MEAN CORPUSCULAR HGB CONC 33 g/dL (31-37); MEAN CORPUSCULAR VOLUME 88 fL (79-100); MONO # 0.6 x10^3/uL (0.0-1.1); MONO % 12 % (0-9); NEUT % 73 % (31-73); PLATELET COUNT 231 x10^3/uL (140-400); RED BLOOD COUNT 4.05 x10^6/uL (4.30-5.70); RED CELL DISTRIBUTION WIDTH 14.8 % (11.5-14.5); WHITE BLOOD COUNT 5.6 x10^3/uL (4.0-11.0)
[2021-11-02 15:40] LABS: ALBUMIN 3.4 g/dL (3.4-5.0); ALBUMIN/GLOBULIN RATIO 0.9 (1.0-1.7); CALCIUM 8.7 mg/dL (8.5-10.1); CREATININE 0.7 mg/dL (0.7-1.3); GFR 110.9; TOTAL BILIRUBIN 0.4 mg/dL (0.2-1.0); TOTAL PROTEIN 7.2 g/dL (6.4-8.2)
== END ==
LOC: SURGPAT 13:27
PROVIDERS: ATTEND Neurological Surgery
DX: Z01.812 Encounter for preprocedural laboratory examination (principal); M48.02 Spinal stenosis, cervical region; Z98.1 Arthrodesis status; Z20.822 Contact with and (suspected) exposure to COVID-19
CPT/HCPCS: 36415; 80053; 85025; 87641; U0003